=== PATIENT | female | born 1930 | race Caucasian/White ===

== ENCOUNTER 2017-02-22 12:09 | Inpatient (IN) | payer MEDICARE ==
[~2017-02-22] VITALS: Ht 152.4 cm; Wt 42.2 kg
[~2017-02-22 12:09] MED LIST: ASPI-557 PO; BRIN10DR BOTH EYES; CEPH-583 PO; POTA10TA14 PO
--- OUTSIDE RECORDS SUMMARY | 2017-02-22 12:15 | XMS REPORT | Referral Summary ---
Author Author [facility] Organization [facility] Address Unknown Phone Unavailable Care Team Providers Care Planning Director Name Role Phone Rut Henderson Primary Care Physician [phone] Encounter VC Date(s): 10/31/16 - 11/02/16 [facility] [address] [place] [address] Discharge Disposition: 06-Home with Home Health Care Attending Physician: Gabriela Santos MD Admitting Physician: Keerthi Higuera MD Vital Signs Most recent to 1 oldest [Reference Range]: Temperature Oral 36.5 degC [35.8-37.3 degC] (11/02/16 12:00 PM) Peripheral Pulse 80 bpm Rate [60-100 bpm] (11/02/16 12:00 PM) Heart Rate Monitored 96 bpm [60-100 bpm] (10/31/16 9:20 PM) Respiratory Rate 18 br/min [14-20 br/min] (11/02/16 12:00 PM) Blood Pressure 135/72 mmHg [90-140/60-90 mmHg] (11/02/16 12:00 PM) Mean Arterial 93 mmHg Pressure, Cuff (11/02/16 12:00 PM) Pulse Rate [60-100 83 bpm bpm] (11/01/16 12:16 AM) SpO2 95 % (11/02/16 12:00 PM) Remote Telemetry Ongoing (11/02/16 8:00 AM) Problem List Condition Effective Dates Status Health Status Informant At risk for Active injury(Confirmed)1 At risk of pressure Active sore(Confirmed) Stroke(Confirmed) Active Glaucoma(Confirmed) Active patient Ear Active patient infection(Confirmed) Knowledge Active deficit(Confirmed)2 Lung Active patient cancer(Confirmed) Pressure ulcer stage Active 2(Confirmed) Self -care Active deficit(Confirmed)3 Sinus Active patient infection(Confirmed) Tobacco Active patient user(Confirmed) Chicken Active patient pox(Confirmed) 1Problem added automatically by system based on initiation of Risk for Injury Plan of Care 2Problem added automatically by system based on initiation of Knowledge Deficit Plan of Care 3Problem added automatically by system based on initiation of Self Care Deficit Plan of Care Allergies, Adverse Reactions, Alerts Substance Reaction Severity Status penicillin Adverse Reaction Active bad taste in mouth Medications aspirin 81 mg, Oral, Daily, 0 Refill(s) Start Date: 01/02/15 Status: Ordered Azopt 1 drops, Eye-Both, BID, 0 Refill(s) Start Date: 01/02/15 Status: Ordered Critic-Aid Skin 20% topical paste 1 evelin, Topical, BID, X 30 days, # 71 g, 0 Refill(s), [id number] Start Date: 11/02/16 Stop Date: 12/02/16 Status: Ordered Keflex 500 mg oral capsule 500 mg 1 caps, Oral, q8hr, X 5 days, # 14 caps, 0 Refill(s), [facility], 1 caps Oral q8hr,x5 days Start Date: 11/02/16 Stop Date: 11/07/16 Status: Ordered potassium chloride 10 mEq oral capsule, extended release 10 mEq 1 caps, Oral, Daily, # 20 caps, 0 Refill(s), Pharmacy: [facility], 1 caps Oral Daily Start Date: 10/18/16 Status: Ordered Tylenol Extra Strength 500 mg, Oral, q6hr, as needed for fever, 0 Refill(s) Start Date: 10/17/16 Status: Ordered Results Hematology Most recent to 1 oldest [Reference Range]: WBC [4.8-10.8 8.9 10*3/uL 10*3/uL] (11/02/16 5:56 AM) RBC [4.00-5.20] 3.66 *LOW* (11/02/16 5:56 AM) Hgb [12.0-16.0 9.8 gm/dL gm/dL] *LOW* (11/02/16 5:56 AM) Hct [37.0-47.0 %] 30.7 % *LOW* (11/02/16 5:56 AM) MCV [82.0-99.0 fL] 83.9 fL (11/02/16 5:56 AM) MCH [27.0-32.0 pg] 26.8 pg *LOW* (11/02/16 5:56 AM) MCHC [32.0-36.0 31.9 gm/dL gm/dL] *LOW* (11/02/16 5:56 AM) RDW [11.5-14.5 %] 13.7 % (11/02/16 5:56 AM) Platelet [150-400 408 10*3/uL 10*3/uL] *HI* (11/02/16 5:56 AM) MPV [9.4-12.4 fL] 8.8 fL *LOW* (11/02/16 5:56 AM) Immature 0.3 % Granulocytes (11/02/16 5:56 AM) [0.0-1.0 %] Neutrophils [51-75 62 % %] (11/02/16 5:56 AM) Lymphocytes [20-46 24 % %] (11/02/16 5:56 AM) Monocytes [4-11 %] 13 % *HI* (11/02/16 5:56 AM) Eosinophils [0-4 %] 1 % (11/02/16 5:56 AM) Basophils [0-2 %] 1 % (11/02/16 5:56 AM) Neutro Absolute 5.45 [1.90-7.00] (11/02/16 5:56 AM) Lymph Absolute 2.12 [0.80-3.30] (11/02/16 5:56 AM) [place] Absolute 1.11 [0.30-1.00] *HI* (11/02/16 5:56 AM) Eos Absolute 0.10 [0.00-0.50] (11/02/16 5:56 AM) Baso Absolute 0.06 [0.00-0.20] (11/02/16 5:56 AM) Nucleated RBC 0.0 /100 WBC Automated [0 /100 (11/02/16 5:56 AM) WBC] Sed Rate [0-23] 75 *HI* (11/02/16 5:56 AM) Chemistry Most recent to 1 oldest [Reference Range]: Sodium Lvl [136-144 133 mEq/L mEq/L] *LOW* (11/02/16 5:56 AM) Potassium Lvl 4.0 mEq/L [3.6-5.1 mEq/L] (11/02/16 5:56 AM) Chloride [99-109 102 mEq/L mEq/L] (11/02/16 5:56 AM) CO2 [22-32 mEq/L] 23 mEq/L (11/02/16 5:56 AM) AGAP [3-20] 8 (11/02/16 5:56 AM) BUN [4-20 mg/dL] 5 mg/dL (11/02/16 5:56 AM) Glucose Lvl [70-100 107 mg/dL mg/dL] *HI* (11/02/16 5:56 AM) Creatinine Lvl 0.54 mg/dL [0.44-1.03 mg/dL] (11/02/16 5:56 AM) eGFR [>60] >60 1 (11/02/16 5:56 AM) Calcium Lvl 8.5 mg/dL [8.6-10.0 mg/dL] *LOW* (11/02/16 5:56 AM) Albumin Lvl [3.5-4.8 2.4 gm/dL gm/dL] *LOW* (10/31/16 6:25 PM) Total Protein 6.5 gm/dL [6.1-7.9 gm/dL] (10/31/16 6:25 PM) Globulin [1.9-4.3 4.1 gm/dL gm/dL] (10/31/16 6:25 PM) ALT [14-54 U/L] 7 U/L *LOW* (10/31/16 6:25 PM) AST [15-41 U/L] 16 U/L (10/31/16 6:25 PM) Alk Phos [26-104 58 U/L U/L] (10/31/16 6:25 PM) Bili Total [0.2-1.2 0.3 mg/dL 2 mg/dL] (10/31/16 6:25 PM) Magnesium Lvl 1.8 mg/dL [1.8-2.5 mg/dL] (11/02/16 5:56 AM) Lactic Acid Lvl 1.1 mEq/L [0.5-2.2 mEq/L] (10/31/16 9:00 PM) Osmolality [275-300 271 mOsm/kg mOsm/kg] *LOW* (10/31/16 6:25 PM) TSH with Reflex Free 1.03 T4 [0.35-5.50] (10/31/16 6:25 PM) Procalcitonin 0.10 ng/mL 3 [0.00-0.09 ng/mL] *HI* (11/02/16 5:56 AM) 1Result Comment: Multiply eGFR results by 1.21 for race. 2Result Comment: Naproxen, specifically the metabolite O-desmethylnaproxen, may cause spurious elevation in Total Bilirubin levels. 3Result Comment: Normal: <0.1 ng/mL (infants >72 hrs - adults) Suspected Lower Respiratory Tract Infection 0.10-0.25 ng/mL=Low likelihood for bacterial infection; Antibiotics discouraged. >0.25 ng/mL=Increased likelihood for bacterial infection; Antibiotics encouraged. Suspected Sepsis: Strongly consider initiating antibiotics in all unstable patients. 0.10-0.50 ng/mL=Low likelihood for sepsis; Antibiotics discouraged. >0.50 ng/mL=Increased likelihood for sepsis; Antibiotics encouraged. Decisions on antibiotic use should not be based solely on procalcitonin levels. If antibiotics are administered, repeat procalcitonin testing should be obtained every 2-3 days to consider early antibiotic cessation. PCT is a dynamic biomarker and most useful when trends are analyzed over time in accompaniment with other clinical data. Interpretation should be based upon clinical context and algorithms. Toxicology Most recent to 1 oldest [Reference Range]: Ethanol Lvl Not Detected (10/31/16 6:25 PM) Microbiology Reports TEST: Blood Culture STATUS: Order in Progress BODY SITE: SOURCE: Blood COLLECTED DATE/TIME: 10/31/16 8:12 PM Blood Culture No growth after 12 hours incubation. Nursing unit will be called if growth is detected. - TEST: Blood Culture STATUS: Order in Progress BODY SITE: SOURCE: Blood COLLECTED DATE/TIME: 10/31/16 8:00 PM Blood Culture No growth after 12 hours incubation. Nursing unit will be called if growth is detected. - Immunizations Not Given Vaccine Date Status Refusal Reason influenza virus vaccine, inactivated 11/01/16 Not Given Patient Refuses pneumococcal 23-polyvalent vaccine 11/02/16 Not Given Patient Refuses Procedures Procedure Date Related Diagnosis Body Site Cataracts Sinus1 Throat2 1Biopsy 2nodule Social History Social History Type Response Smoking Status Current every day smoker; Type: Cigarettes; Tobacco use per day: Pack; Number of years: 70 Assessment and Plan No data available for this section
--- OUTSIDE RECORDS SUMMARY | 2017-02-22 12:15 | XMS REPORT | Continuity of Care Document ---
Author Author [facility] Organization [facility] Address Unknown Phone Unavailable Support Name Relationship Address Phone SHANI MATA DO Caregiver [address] [place] [address] Unavailable BASILIO HENDERSON MD Caregiver [address] [place] [address] Unavailable WIN FERRERA Next Of Kin TRAVELING NURSE Unknown [phone] Insurance Providers Guarantor Tomy Moore Address [address] [facility] [address] [place] [address] Payer Medicare Policy Number [id number] Subscriber's Name Tomy Moore Relationship 18 Self Effective Date 97 Chief Complaint and Reason for Visit Chief Complaint Lower Extremity Pain Reason for Visit Edema of right lower extremity Cellulitis Problems Past Problems Medical Problem Onset Date Cellulitis Unknown Edema of right lower extremity Unknown Medications Current Home Medications Medication Dose Units Route Directions Days Qty Instructions Start Date Aspirin (Aspir 81) 81 Mg Tablet.dr 81 Mg Oral Daily 10/28/16 Brinzolamide (Azopt) 100 Drop/10 Ml Drops 1 Drop Both Eyes Twice A Day 10/28/16 Cephalexin (Keflex) 500 Mg Capsule 1 Cap Oral Three Times A Day 21 Capsule 10/28/16 Potassium Chloride 10 Meq Tablet.er 10 Meq Oral Give With Breakfast 10/28/16 Social History Social History Problem Response Recorded Date/Time Onset Date Status Hx Alcohol Use No 10/28/2016 4:43pm Not Applicable Not Applicable Query Response Start Date Stop Date Smoking Status Current every day smoker Hospital Discharge Instructions No hospital discharge instructions. Plan of Care Discharge Date 10/28/16 6:10pm Disposition 01 DISCHARGED HOME, SELF-CARE Condition at Discharge Stable Instructions/Education Provided DI for Cellulitis -- Adult Prescriptions See Medication Section Referrals BASILIO HENDERSON MD Address: [address] [place] [address] [phone] Additional Instructions/Education Take the Keflex as prescribed. I do want you to keep you lower leg elevated to help decrease swelling. Follow up with Dr. Henderson next week or return to ER over the weekend if this is not improving, increased swelling, redness, or pain. Care Plan and Goals Physician Care Plan Problem:Right LE edema Goal: Follow up with primary care provider Instructions: Take medications and follow care plan as discussed/written Functional Status No functional status results. Allergies, Adverse Reactions, Alerts No known allergies. Immunizations Query Response on File Recorded Date/Time Tdap Vaccine Hx NO BROKEN SKIN 10/28/16 5:00pm Vital Signs Acute Vital Signs Vital Response Date/Time Temperature (Fahrenheit) 98.5 deg F (96.8 - 99.1) 10/28/2016 6:10pm Temperature (Calculated Celsius) 36.87393 degrees C (36.0 - 37.3) 10/28/2016 6:10pm Pulse Rate (adult) 75 bpm (60 - 100) 10/28/2016 6:10pm Respiratory Rate 14 breaths/min (10 - 20) 10/28/2016 6:10pm O2 Sat by Pulse Oximetry 98 % (90 - 100) 10/28/2016 6:10pm Blood Pressure 130/62 mm Hg 10/28/2016 6:10pm Blood Pressure 130/62 mm Hg 10/28/2016 6:10pm Height (Feet) 5 feet 10/28/2016 4:05pm Height (Inches) 0 inches 10/28/2016 4:05pm Weight (Kilograms) 44.000 kg 10/28/2016 4:05pm Body Mass Index (BMI) 18.0 10/28/2016 4:05pm Results Laboratory Results Test Name Result Units Flags Reference Collection Date/Time Result Date/ Time Comments White Blood Count 9.9 T/MM3 4.5-11.0 10/28/2016 4:57pm 10/28/2016 5: 04pm Red Blood Count 3.97 M/MM3 L 4.00-5.20 10/28/2016 4:57pm 10/28/2016 5: 04pm Hemoglobin 10.8 GM/DL L 12-10/28/2016 4:57pm 10/28/2016 5:04pm Hematocrit 34.0 % L 36-46 10/28/2016 4:57pm 10/28/2016 5:04pm Mean Corpuscular Volume 85.6 UM3 80-100 10/28/2016 4:57pm 10/28/2016 5: 04pm Mean Corpuscular Hemoglobin 27.2 UUG 26-34 10/28/2016 4:57pm 2015 5:04pm Mean Corpuscular Hemoglobin Concent 31.8 GM/DL 31-37 10/28/2016 4:57pm 10/28/2016 5:04pm RDW Standard Deviation 42.0 FL 36.9-50.2 10/28/2016 4:57pm 10/28/2016 5 :04pm Platelet Count 437 T/MM3 H 130-400 10/28/2016 4:57pm 10/28/2016 5:04pm Mean Platelet Volume 8.4 UM3 L 9.4-12.4 10/28/2016 4:57pm 10/28/2016 5: 04pm Neutrophils (%) (Auto) 66.2 % H 33-66 10/28/2016 4:57pm 10/28/2016 5: 04pm Lymphocytes (%) (Auto) 20.8 % L 23-45 10/28/2016 4:57pm 10/28/2016 5: 04pm Monocytes (%) (Auto) 11.6 % H 0-9.0 10/28/2016 4:57pm 10/28/2016 5:04pm Eosinophils (%) (Auto) 0.7 % 0-4 10/28/2016 4:57pm 10/28/2016 5:04pm Basophils (%) (Auto) 0.4 % 0-2 10/28/2016 4:57pm 10/28/2016 5:04pm Immature Granulocyte % (Auto) 0.3 % 0.0-0.5 10/28/2016 4:57pm 2015 5:04pm Absolute Neutrophils (auto) 6.6 T/MM3 1.8-7.7 10/28/2016 4:57pm 2015 5:04pm Absolute Lymphocytes (auto) 2.1 T/MM3 1-4.8 10/28/2016 4:57pm 2015 5:04pm Absolute Monocytes (auto) 1.2 T/MM3 H 0-0.8 10/28/2016 4:57pm 2015 5:04pm Absolute Eosinophils (auto) 0.1 T/MM3 0-0.5 10/28/2016 4:57pm 2015 5:04pm Absolute Basophils (auto) 0.0 T/MM3 0-0.2 10/28/2016 4:57pm 10/28/2016 5:04pm Absolute Immature Granulocyte (auto 0.03 T/MM3 0.00-0.03 10/28/2016 4: 57pm 10/28/2016 5:04pm Icterus Index < 2 0-7 10/28/2016 4:57pm 10/28/2016 5:14pm Chemistry Specimen Hemolysis < 15 0-25 10/28/2016 4:57pm 10/28/2016 5 :14pm 0-25: Specimen Exhibited No Hemolysis. Turbidity < 20 0-20 10/28/2016 4:57pm 10/28/2016 5:14pm Sodium Level 135 MEQ/L 134-144 10/28/2016 4:57pm 10/28/2016 5:14pm Potassium Level 3.3 MEQ/L L 3.6-5 10/28/2016 4:57pm 10/28/2016 5:14pm Chloride Level 97 MEQ/L L 98-107 10/28/2016 4:57pm 10/28/2016 5:14pm Carbon Dioxide Level 29 MEQ/L 22-30 10/28/2016 4:57pm 10/28/2016 5: 14pm Anion Gap 9 MEQ/L 5-15 10/28/2016 4:57pm 10/28/2016 5:14pm Blood Urea Nitrogen 10.0 MG/DL 7-17 10/28/2016 4:57pm 10/28/2016 5: 14pm Creatinine 0.6 MG/DL L 0.7-1.2 10/28/2016 4:57pm 10/28/2016 5:14pm BUN/Creatinine Ratio 17 RATIO 6-26 10/28/2016 4:57pm 10/28/2016 5:14pm Glomerular Filtration Rate Calc 95 10/28/2016 4:57pm 10/28/2016 5: 14pm Glucose Level 110 MG/DL 65-110 10/28/2016 4:57pm 10/28/2016 5:14pm Calculated Osmolality 260 MOSM/KG L 261-280 10/28/2016 4:57pm 2015 5:14pm Calcium Level 9.1 MG/DL 8.4-10.2 10/28/2016 4:57pm 10/28/2016 5:14pm Name: Tomy MOORE Unit #: [id number] : 1930 Sex: F Admit Date: Loc / Svc: ED Discharge Date: DIAGNOSTIC IMAGING REPORT Report #: [id number] [facility] JET Reddy Indication: ITS.REASON: RLE edema PROCEDURE: US VENOUS DUPLEX, LOWER EXT RT: Encounter: Initial Comparison: None Technique: Color Doppler duplex and grayscale sonographic imaging of the right lower extremity was performed. Findings: There is no evidence for acute deep venous thrombosis in the right thigh. Specifically, serial graded compression was performed from the inguinal ligament to the popliteal bifurcation, on the right thigh, demonstrating appropriate compressibility of the deep venous system. In addition, color and pulsed Doppler demonstrate appropriate spontaneous flow, variation with respiration, and augmentation with calf compression. At the ankle, normal flow is identified in the posterior tibial veins; these vessels are also normal in caliber. Impression: No evidence of acute DVT in the right lower limb. . Procedures No known history of procedures. Encounters Encounter Location Arrival/Admit Date Discharge/Depart Date Attending Provider Departed Emergency Room [facility] 10/28/16 4:01pm 10/28/16 6: 10pm SHANI MATA DO Recent Diagnosis
--- OUTSIDE RECORDS SUMMARY | 2017-02-22 12:15 | XMS REPORT | Referral Summary ---
Author Author [facility] Organization [facility] Address Unknown Phone Unavailable Care Team Providers Care Nail Galvanizer Name Role Phone Rut Henderson Primary Care Physician [phone] Encounter VC Date(s): 10/28/16 - 10/28/16 [facility] [address] [place] [address] Discharge Diagnosis: Right leg swelling Discharge Disposition: 01-Home or Self Care Attending Physician: Kam Lovett PA-C Admitting Physician: Kam Lovett PA-C Vital Signs No data available for this section Problem List Condition Effective Dates Status Health Status Informant Stroke(Confirmed) Active Glaucoma(Confirmed) Active patient Ear Active patient infection(Confirmed) Lung Active patient cancer(Confirmed) Sinus Active patient infection(Confirmed) Tobacco Active patient user(Confirmed) Chicken Active patient pox(Confirmed) Allergies, Adverse Reactions, Alerts Substance Reaction Severity Status penicillin Adverse Reaction Active bad taste in mouth Medications aspirin 0 Refill(s) Start Date: 01/02/15 Status: Ordered Azopt drops, Eye-Both, TID, 0 Refill(s) Start Date: 01/02/15 Status: Ordered potassium chloride 10 mEq oral capsule, extended release 10 mEq 1 caps, Oral, Daily, # 20 caps, 0 Refill(s), Pharmacy: [id number], 1 caps Oral Daily Start Date: 10/18/16 Status: Ordered Tylenol Extra Strength Oral, 0 Refill(s) Start Date: 10/17/16 Status: Ordered Results No data available for this section Immunizations No data available for this section Procedures Procedure Date Related Diagnosis Body Site Cataracts Sinus1 Throat2 1Biopsy 2nodule Social History Social History Type Response Smoking Status Current every day smoker; Type: Cigarettes; Tobacco use per day: Pack; Number of years: 70 Assessment and Plan Extracted from: Title: Right lower extremity Author: Kam Lovett PA-C Date: 10/28/16 swelling
--- OUTSIDE RECORDS SUMMARY | 2017-02-22 12:15 | XMS REPORT | Referral Summary ---
Author Author [facility] Organization [facility] Address Unknown Phone Unavailable Care Team Providers Care Therapist Physical Name Role Phone Rut Henderson Primary Care Physician [phone] Encounter VC Date(s): 10/17/16 - 10/17/16 [facility] [address] [place] [address] Discharge Diagnosis: Frail Elderly Discharge Diagnosis: Lung cancer Discharge Diagnosis: Fatigue Discharge Diagnosis: Tobacco user Discharge Diagnosis: Weight loss Discharge Disposition: 01-Home or Self Care Attending Physician: Gwyn Henderson MD Admitting Physician: Gwyn Henderson MD Vital Signs Most recent to 1 oldest [Reference Range]: Temperature Tympanic 37.8 degC [36.6-38.1 degC] (10/17/16 1:55 PM) Peripheral Pulse 91 bpm Rate [60-100 bpm] (10/17/16 1:55 PM) Blood Pressure 142/68 mmHg [90-140/60-90 mmHg] *HI* (10/17/16 1:55 PM) SpO2 92 % (10/17/16 1:55 PM) Problem List Condition Effective Dates Status Health [...] 0 Refill(s) Start Date: 01/02/15 Status: Ordered Tylenol Extra Strength Oral, 0 Refill(s) Start Date: 10/17/16 Status: Ordered Results Hematology Most recent to 1 oldest [Reference Range]: WBC [4.8-10.8 11.9 10*3/uL 10*3/uL] *HI* (10/17/16 3:02 PM) RBC [4.00-5.20] 4.18 (10/17/16 3:02 PM) Hgb [12.0-16.0 11.7 gm/dL gm/dL] *LOW* (10/17/16 3:02 PM) Hct [37.0-47.0 %] 36.1 % *LOW* (10/17/16 3:02 PM) MCV [82.0-99.0 fL] 86.4 fL (10/17/16 3:02 PM) MCH [27.0-32.0 pg] 28.0 pg (10/17/16 3:02 PM) MCHC [32.0-36.0 32.4 gm/dL gm/dL] (10/17/16 3:02 PM) RDW [11.5-14.5 %] 13.6 % (10/17/16 3:02 PM) Platelet [150-400 454 10*3/uL 10*3/uL] *HI* (10/17/16 3:02 PM) MPV [8.8-14.8 fL] 9.4 fL (10/17/16 3:02 PM) Neutrophils [51-75 78 % %] *HI* (10/17/16 3:02 PM) Lymphocytes [20-46 13 % %] *LOW* (10/17/16 3:02 PM) Monocytes [4-11 %] 8 % (10/17/16 3:02 PM) Eosinophils [0-4 %] 1 % (10/17/16 3:02 PM) Basophils [0-2 %] 0 % (10/17/16 3:02 PM) Neutro Absolute 9.28 10*3 [1.90-7.00 10*3] *HI* (10/17/16 3:02 PM) Lymph Absolute 1.55 10*3 [0.80-3.30 10*3] (10/17/16 3:02 PM) [place] Absolute 0.95 10*3 [0.30-1.00 10*3] (10/17/16 3:02 PM) Eos Absolute 0.12 10*3 [0.00-0.50 10*3] (10/17/16 3:02 PM) Baso Absolute 0.00 10*3 [0.00-0.20 10*3] (10/17/16 3:02 PM) Differential Manual *ABN* (10/17/16 3:02 PM) Sed Rate [0-23] 82 *HI* (10/17/16 3:02 PM) Chemistry Most recent to 1 oldest [Reference Range]: Sodium Lvl [135-144 136 mEq/L mEq/L] (10/17/16 3:02 PM) Potassium Lvl 3.1 mEq/L [3.5-5.2 mEq/L] *LOW* (10/17/16 3:02 PM) Chloride [99-111 99 mEq/L mEq/L] (10/17/16 3:02 PM) CO2 [22-31 mEq/L] 23 mEq/L (10/17/16 3:02 PM) AGAP [3-20] 14 (10/17/16 3:02 PM) BUN [10-20 mg/dL] 11 mg/dL (10/17/16 3:02 PM) Glucose Lvl [70-99 119 mg/dL mg/dL] *HI* (10/17/16 3:02 PM) Creatinine Lvl 0.68 mg/dL [0.57-1.11 mg/dL] (10/17/16 3:02 PM) eGFR [>60 mL/min] >60 mL/min 1 (10/17/16 3:02 PM) Calcium Lvl 9.3 mg/dL [8.9-10.5 mg/dL] (10/17/16 3:02 PM) Albumin Lvl [3.4-4.8 3.7 gm/dL gm/dL] (10/17/16 3:02 PM) Total Protein 7.1 gm/dL [6.0-7.6 gm/dL] (10/17/16 3:02 PM) Globulin [1.8-4.0 3.4 gm/dL gm/dL] (10/17/16 3:02 PM) ALT [0-55 U/L] 5 U/L (10/17/16 3:02 PM) AST [5-34 U/L] 10 U/L (10/17/16 3:02 PM) Alk Phos [40-150 75 U/L U/L] (10/17/16 3:02 PM) Bili Total [0.2-1.2 0.5 mg/dL mg/dL] (10/17/16 3:02 PM) TSH with Reflex Free 0.57 T4 [0.35-4.94] (10/17/16 3:02 PM) 1Result Comment: Multiply eGFR results by 1.21 for race. Immunizations No data available for this section Procedures Procedure Date Related Diagnosis Body Site Cataracts Sinus1 Throat2 1Biopsy 2nodule Social History Social History Type Response Smoking Status Current every day smoker; Type: Cigarettes; Tobacco use per day: Pack; Number of years: 70 Assessment and Plan Extracted from: Title: Acute OV Author: Gwyn Henderson MD Date: 10/17/16 Impression and Plan Diagnosis Fatigue (NLG82-ZC R53.83, Discharge, Medical). Frail Elderly (EVQ99-UR R54, Discharge, Medical). Lung cancer (QWU06-QE C34.90, Discharge, Medical). Tobacco user (RCQ50-SZ Z72.0, Discharge, Medical). Weight loss (UVN39-AT R63.4, Discharge, Medical). Orders Orders (Selected) Outpatient Orders Future (On Hold) CBC w/ Differential: CMP: Sedimentation Rate: TSH with Reflex Free T4: .
--- OUTSIDE RECORDS SUMMARY | 2017-02-22 12:15 | XMS REPORT | Continuity of Care Document ---
Author Author [facility] Organization [facility] Address Unknown Phone Unavailable Allergies Active Description Code Type Severity Reaction Onset Reported/Identified Relationship to Patient Clinical Status Yes No Known Drug Allergies No Known Drug Allergies Drug Allergy Unknown . 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 Procedures Code Description Performed By Performed On 39.71 ENDOVASCULAR IMPLANTATION OF OTHER GRAFT IN ABDOMI Bennie Beltran MD 02/09/2015 Results Test Result Range CBC - 02/04/15 10:18 MEAN CELL HGB 29.9 pg 27.0-33.0 MEAN CELL HGB CONCENTRATION 34.5 g/dL 32.0-37.0 MEAN CELL VOLUME 86.5 fl 80.0-100.0 RED BLOOD CELL 4.75 m/cumm 4.00-6.00 RED CELL DISTRIBUTION WIDTH 14.5 % 11.0- 15.6 WHITE BLOOD CELL 6.8 k/cumm 5.0-10.0 HEMOGLOBIN 14.2 gm/dL 12.0-16.0 HEMATOCRIT 41.1 % 37.0-47.0 PLATELET COUNT 305 k/cumm 150-400 METABOLIC PANEL, BASIC - 02/04/15 10:18 POTASSIUM 3.9 mmol/L 3.5-5.3 EST GFR (MDRD) > 60 mL/min > 59 ANION GAP 9 mmol/L 5-15 GLUCOSE 96 mg/dL 70-99 CALCIUM 9.8 mg/dL 8.5-10.1 BLOOD UREA NITROGEN 9 mg/dL 7-20 CREATININE 0.7 mg/dL 0.6-1.0 SODIUM 137 mmol/L 135-148 CHLORIDE 102 mmol/L 98-110 CARBON DIOXIDE 26 mmol/L 21-32 RENAL FUNCTION PANEL - 02/10/15 04:29 POTASSIUM 4.0 mmol/L 3.5-5.3 EST GFR (MDRD) > 60 mL/min > 59 ANION GAP 4 mmol/L 5-15 EST CrCl (CG) 57 mL/min > 59 GLUCOSE 129 mg/dL 70-99 CALCIUM 8.5 mg/dL 8.5-10.1 BLOOD UREA NITROGEN 6 mg/dL 7-20 CREATININE 0.6 mg/dL 0.6-1.0 SODIUM 135 mmol/L 135-148 CHLORIDE 103 mmol/L 98-110 CARBON DIOXIDE 28 mmol/L 21-32 ALBUMIN 3.1 gm/dL 3.4-5.0 PHOSPHORUS 3.0 mg/dL 2.5-4.9 MRSA SURVEILLANCE SCREEN - 02/10/15 05:00 Microbiology Encounters ACCT No. Visit Date/Time Discharge Status Pt. Type Provider Facility Loc./Unit Complaint [id number] 02/09/2015 08:49:00 2014 14:50:00 DIS Inpatient Devin JOVEL, [facility] W.3TS [id number] 02/04/2015 09:07:00 2014 09:07:00 DIS Outpatient Devin JOVEL, [facility] FRANNIE
--- OUTSIDE RECORDS SUMMARY | 2017-02-22 12:15 | XMS REPORT | Referral Summary ---
Author Author [facility], Family Medicine Organization [facility] Address Unknown Phone Unavailable Care Team Providers Care Ip Litigation Associate Name Role Phone Rut Henderson Primary Care Physician [phone] Encounter VC Date(s): 11/24/16 - 11/24/16 [facility] [address] [place] [id number] Discharge Diagnosis: Self -care deficit Discharge Diagnosis: Frail Elderly Discharge Diagnosis: Weight loss Discharge Diagnosis: Lung cancer Discharge Disposition: 01-Home or Self Care Attending Physician: Gwyn Henderson MD Admitting Physician: Gwyn Henderson MD Vital Signs Most recent to 1 oldest [Reference Range]: Peripheral Pulse 71 bpm Rate [60-100 bpm] (11/24/16 10:27 AM) Blood Pressure 160/60 mmHg [90-140/60-90 mmHg] *HI* (11/24/16 10:27 AM) Problem List Condition Effective Dates Status [...] mg, Oral, Daily, 0 Refill(s) Start Date: 2/27/15 Status: Ordered Azopt 1 drops, Eye-Both, BID, 0 Refill(s) Start Date: 01/02/15 Status: Ordered Critic-Aid Skin 20% topical paste 1 evelin, Topical, BID, X 30 days, # 71 g, 0 Refill(s), Pharmacy: [id number] Start Date: 11/02/16 Stop Date: 12/02/16 Status: Ordered potassium chloride 10 mEq oral capsule, extended release 10 mEq 1 caps, Oral, Daily, # 20 caps, 0 Refill(s), Pharmacy: [id number], 1 caps Oral Daily Start Date: 10/18/16 Status: Ordered Results No data available for this section Immunizations Given and Recorded Vaccine Date Status Refusal Reason influenza virus vaccine, inactivated 11/08/16 Given pneumococcal 23-polyvalent vaccine 11/08/16 Given Not Given Vaccine Date Status Refusal Reason [...] 68 Assessment and Plan Extracted from: Title: OV Author: Gwyn Henderson MD Date: 11/24/16 Impression and Plan Diagnosis Frail Elderly ([id number], Discharge, Medical). Self -care deficit ([id number] Z73.89, Discharge, Medical). Weight loss ([id number] R63.4, Discharge, Medical). Lung cancer ([id number] C34.90, Discharge, Medical).
--- OUTSIDE RECORDS SUMMARY | 2017-02-22 12:15 | XMS REPORT | Referral Summary ---
Author Author [facility], Family Medicine Organization [facility] Address Unknown Phone Unavailable Care Team Providers Care Etiologist Name Role Phone Rut Henderson Primary Care Physician [phone] Encounter VC NAN [id number] Date(s): 11/08/16 - 11/08/16 [facility] [address] [place] [id number] Discharge Disposition: 01-Home or Self Care Attending Physician: Joe Boss APRN Admitting Physician: Joe Boss APRN Vital Signs Most recent to 1 oldest [Reference Range]: Peripheral Pulse 68 bpm Rate [60-100 bpm] (11/08/16 10:56 AM) Blood Pressure 124/60 mmHg [90-140/60-90 mmHg] (11/08/16 11:00 AM) Problem List Condition Effective Dates Status [...] days, # 71 g, 0 Refill(s), Pharmacy: [id number] Start Date: 11/02/16 Stop Date: 12/02/16 Status: Ordered potassium chloride 10 mEq oral capsule, extended release 10 mEq 1 caps, Oral, Daily, # 20 caps, 0 Refill(s), Pharmacy: [id number], 1 caps Oral Daily Start Date: 10/18/16 Status: Ordered Results Chemistry Most recent to 1 oldest [Reference Range]: Sodium Lvl [135-144 139 mEq/L mEq/L] (11/08/16 12:48 PM) Potassium Lvl 5.0 mEq/L [3.5-5.2 mEq/L] (11/08/16 12:48 PM) Chloride [99-111 102 mEq/L mEq/L] (11/08/16 12:48 PM) CO2 [22-31 mEq/L] 25 mEq/L (11/08/16 12:48 PM) AGAP [3-20] 12 (11/08/16 12:48 PM) BUN [10-20 mg/dL] 8 mg/dL *LOW* (11/08/16 12:48 PM) Glucose Lvl [70-99 108 mg/dL mg/dL] *HI* (11/08/16 12:48 PM) Creatinine Lvl 0.68 mg/dL [0.57-1.11 mg/dL] (11/08/16 12:48 PM) eGFR [>60 mL/min] >60 mL/min 1 (11/08/16 12:48 PM) Calcium Lvl 9.9 mg/dL [8.9-10.5 mg/dL] (11/08/16 12:48 PM) 1Result Comment: Multiply eGFR results by 1.21 for race. Immunizations Given and Recorded Vaccine Date Status [...]
[2017-02-22 12:41] VITALS: Ht 152.4 cm; Wt 42.2 kg
[2017-02-22 12:43] VITALS: BP 146/72; PULSE 72; RESP 22; TEMP 95.9; O2SAT 100
--- NOTE | 2017-02-22 13:08 | HPPDOC ---
LUIS CARLOS COBB V IMMUNOCHEMIST 02/22/17 1304: HPI - Adult Date DATE: 02/22/17 TIME: 12:55 General Chief Complaint: Dyspnea, Hypoxia History of Present Illness Patient is an 86-year-old female who presented to her primary care provider this morning at [facility] and was seen by Lorena Hunt. She was brought by daughter with complaints of diarrhea, weight loss,confusion, and increased coughing. Family reports that there has been a "bug" around the house for the past week. On arrival to the clinic. Patient was found to have hypoxia with room air saturations in the 81%. She is reported to be down from 91 pounds last month 286 pounds today. Given the acute hypoxia, accompanied with increased cough and recent diarrhea. The hospitalist services were contacted and accepted patient for direct admission to [facility] for further evaluation and treatment. It is reported that patient has been under treatment for lung cancer with Dr. Mills. She did have an outpatient CT scan of the chest obtained this morning showing interval extensive tree-in-bed nodularity with bilateral lower lobes which may represent pneumonia. Patient is seen on arrival to [facility]. She is currently requiring 2 liters of oxygen by nasal cannula to maintain adequate saturation. The pressure on arrival 95.5, pulse 72, respiration rate 22, blood pressure 146/72. Patient is alert into 2. She is unsure what year it is currently. She reports feeling more short of breath and having increased cough over the last few days. She is unclear on the timeframe of when her diarrhea starts, however, she thinks it was last week. She denies chest pain, chills, abdominal pain or dysuria. Past Medical History Past Medical History Lung Cancer CAD Abdominal aneurysm Surgical History Patient's Surgical History: Cataract removal Abdominal aneurysm repair Current Medications Home Meds Reported Medications Brinzolamide (Azopt) 100 Drop/10 Ml Drops, 1 DROP BOTH EYES BID 10/28/16 Aspirin (Aspir 81) 81 Mg Tablet.dr, 81 MG PO DAILY 10/28/16 Discontinued Reported Medications Potassium Chloride (Potassium Chloride) 10 Meq Tablet.er, 10 MEQ PO WB 10/28/16 Discontinued Scripts Cephalexin (Keflex) 500 Mg Capsule, 1 CAP PO TID, #21 CAP 0 Refills Prov:ALEXRODASESNohemi Argueta IMMUNOCHEMIST 10/28/16 Allergies: Coded Allergies: No Known Allergies (Unverified , 10/28/16) Family History Family History: Father-Brain aneurysm. Mother-stomach cancer Social History Smoking Status: Current every day smoker Substance Use Type: does not use Alcohol Intake: none Advance Directives: Yes DNR Social History Comments PCP Dr Henderson Review of Systems Constitutional: REPORTS: appetite decrease, fatigue, weakness Cardiovascular dyspnea on exertion Pulmonary Respiratory: cough, dyspnea, tachypnea GI Lower Abdomen: diarrhea All Other Systems All Other Systems: Reviewed (remainder of 10-point ROS Neg.) Physical Exam General General Nourishment: well nourished, well developed Vital Signs Vital Signs Date Time Temp Pulse Resp B/P Pulse Ox O2 Delivery O2 Flow Rate FiO2 02/22/17 12:43 95.9 72 22 146/72 100 Nasal Cannula 2.00 Height (Feet): 5 Height (Inches): 0.00 Respiratory Brief: NOT FOUND: wheezes Comments Course breath sounds bilaterally Abdomen (brief) Abdominal Brief: FOUND: BS normo active x4, soft Neurologic (brief) Neurological Brief: FOUND: cranial 2-12 intact, motor (strength bilateral eqally x4 extre), sensory (equal bilaterally) Neurologic RN Documented GCS Eye Opening: Verbal: Motor: Total: Psychiatric (brief) FOUND: alert, attentive, normal affect Assessment & Plan Problems: (1) Acute respiratory failure with hypoxia Status: Acute (2) Leukocytosis Status: Acute Assessment & Plan: Present on admission (3) Coughing Status: Acute (4) Hypokalemia Status: Acute Assessment & Plan: Present on admission (5) Lung cancer Status: Chronic Qualifiers: Lung location: unspecified part of lung (6) Coronary artery disease Status: Chronic (7) Tobacco dependence Status: Chronic (8) Underweight Status: Chronic (9) History of aortic aneurysm repair Status: Resolved Plan/Intensity of Service Admit patient to inpatient status under the care of Dr. Atkinson for acute respiratory failure with hypoxia, cough, presence of lung cancer. Will obtain the following laboratory studies on admission, CBC, CMP, venous lactate, pro calcitonin, blood cultures 2 Will obtain GI panel given recent diarrhea Chest x-ray two-view and sputum culture as able Oxygen therapy to maintain adequate saturations greater than 92%. DuoNeb QID and Pulmicort BID Given leukocytosis will initiate Rocephin and Azithromycin for pulmonary coverage She may have regular diet and be up in room with assistance SCDs to bilateral lower extremity for DVT prophylaxis We'll recheck CBC and BMP tomorrow morning to follow blood counts, renal function and electrolytes. We'll discuss further plan of care with attending Dr Atkinson At time of discharge medical care will return to her primary care provider Dr Henderson DVT Prophylaxis: SCD'S Code Status Hospital Course Summary Disclaimer The hospital course summary below is not to be considered part of the above Progress Note. Hospital Course Summary Admit patient to inpatient status under the care of Dr. Atkinson for acute respiratory failure with hypoxia, cough, presence of lung cancer. Will obtain the following laboratory studies on admission, CBC, CMP, venous lactate, pro calcitonin, blood cultures 2 Will obtain GI panel given recent diarrhea Chest x-ray two-view and sputum culture as able Oxygen therapy to maintain adequate saturations greater than 92%. DuoNeb QID and Pulmicort BID Given leukocytosis will initiate Rocephin and Azithromycin for pulmonary coverage She may have regular diet and be up in room with assistance SCDs to bilateral lower extremity for DVT prophylaxis We'll recheck CBC and BMP tomorrow morning to follow blood counts, renal function and electrolytes. We'll discuss further plan of care with attending Dr Atkinson At time of discharge medical care will return to her primary care provider SHAW Artis MD 02/22/17 4297: Past Medical History Current Medications Home Meds Reported Medications Brinzolamide (Azopt) 100 Drop/10 Ml Drops, 1 DROP BOTH EYES BID 10/28/16 Aspirin (Aspir 81) 81 Mg Tablet.dr, 81 MG PO DAILY 10/28/16 Discontinued Reported Medications Potassium Chloride (Potassium Chloride) 10 Meq Tablet.er, 10 MEQ PO WB 10/28/16 Discontinued Scripts Cephalexin (Keflex) 500 Mg Capsule, 1 CAP PO TID, #21 CAP 0 Refills Prov:UMA KATENohemi Argueta APRN 10/28/16 Allergies: Coded Allergies: No Known Allergies (Unverified , 10/28/16) Sepsis Diagnostic Criteria Sepsis Confirmed/Suspected Infection: Yes SIRS Criteria: Temp<=96.8 or >=100.4, WBC >=12,000 or <=4,000, Bands >= 10%, BS >120 in non-diabetic, RR > or = to 20 Severe Sepsis SpO2 <90% or ventilated Assessment & Plan Problems: (1) Acute respiratory failure with hypoxia Status: Acute (2) Severe sepsis Status: Acute (3) Pneumonia Status: Acute Qualifiers: Laterality: left Lung location: lower lobe of lung Assessment & Plan: Bilateral lower lobe infiltrates on CT; left lower lobe on chest x-ray (4) Hypokalemia Status: Acute (5) Leukocytosis Status: Acute (6) Lung cancer Status: Chronic Qualifiers: Lung location: unspecified part of lung (7) Coughing Status: Acute (8) Coronary artery disease Status: Chronic (9) Tobacco dependence Status: Chronic (10) Underweight Status: Chronic Assessment & Plan: Recent weight loss (11) History of aortic aneurysm repair Status: Resolved (12) Dysphagia Status: Chronic Assessment I have independently evaluated and examined this patient. I reviewed the chart, the patient's history, and the IMMUNOCHEMIST's documented findings as above. We discussed and formulated the assessment and plan as above with additions as below: Patient was somnolent when seen although would open her eyes briefly, minimal verbal response. History obtained from her daughter who indicates patient has been losing weight progressively and has had been choking on foods at home. She primarily consumes nutritional supplements. Progressive weakness for several weeks with increasing cough but no reported fevers prompted office evaluation today where she was found to be hypoxic. She initially required 3 L supplemental oxygen. She was hemodynamically stable in the office but had leukocytosis with left shift. The patient's daughter reports that her mental status tends to fluctuate and there has been increasing confusion for several months. She's not had CT of the head previously. On examination the patient is cachectic and drowsy, she falls asleep when not actively stimulated and provides minimal information when I can awaken her. Patient tends to keep her eyes closed although conjunctiva are clear and sclera anicteric when open briefly. Gaze is conjugate. Neck is supple and without adenopathy. There is a suggestion of minor flattening of the left nasolabial fold although this may be due to patient positioning. Anterior breath sounds are clear with breath sounds very diminished in the lower third of the lung alvarez posteriorly/laterally bilaterally. Inspiratory effort is poor. Cardiac rhythm regular and abdomen benign. I could not wake and patient adequately to formally assess power but she does move the extremities weakly/spontaneously as I palpate them. No generalized skin rash noted Chest x-ray reviewed by myself demonstrating left lower lobe pneumonia. Leukocytosis/left shift present New hypoxia, hyperglycemia present on admission. Blood gas without hypercarbia. Antibiotics initiated for outpatient pneumonia-last hospitalization in November. Speech therapy evaluation initiated. Prednisone 40 mg daily added to her regimen 5 days Nicotine patch initiated per patient/daughter request Screening respiratory viral panel in addition to testing previously ordered. Plan/Intensity of Service Outpatient records reviewed, chest x-ray reviewed by myself, laboratory data reviewed, supplemental history provided by the patient's daughter. Discussed with office provider earlier today. Discussed with nursing. LUIS CARLOS COBB APRN Feb 22, 2017 13:04 SHAW ATKINSON MD Feb 22, 2017 17:57
[2017-02-22 13:13] LABS: LACTATE - LACTIC ACID 1.6 MMOL/L (0.6-2.2)
[2017-02-22 13:32] LABS: HCT - HEMATOCRIT 38.3 % (36-46); HGB - HEMOGLOBIN 12.4 GM/DL (12-16); MEAN CORPUSCULAR HGB 27.2 UUG (26-34); MEAN CORPUSCULAR HGB CONC(MCHC 32.4 GM/DL (31-37); MEAN PLATELET VOLUME 9.8 UM3 (9.4-12.4); RED BLOOD COUNT 4.56 M/MM3 (4.00-5.20); WBC - WHITE BLOOD COUNT 17.8 T/MM3 (4.5-11.0)
[2017-02-22 13:41] LABS: ANION GAP 13 MEQ/L (5-15); BUN/CREATININE RATIO 31 RATIO (6-26); CALCIUM 9.7 MG/DL (8.4-10.2); CHLORIDE 99 MEQ/L (98-107); CO2 - CARBON DIOXIDE 29 MEQ/L (22-30); CREATININE 0.8 MG/DL (0.7-1.2); GLOMERULAR FILTRATION RATE 68; GLUCOSE 139 MG/DL (65-110); POTASSIUM 3.2 MEQ/L (3.6-5); SODIUM 141 MEQ/L (134-144)
[2017-02-22] MEDS: NORMAL SALINE 1,000 ML IV SCH (13:59)
[2017-02-22 14:00] VITALS: PULSE 72; RESP 22
[2017-02-22 14:07] LABS: BAND NEUTROPHILS # 3.7 T/MM3; BASOPHILS # (MANUAL) 0.2 T/MM3 (0-0.2); LYMPHOCYTES # (MANUAL) 1.1 T/MM3 (1-4.8); MONOCYTES # (MANUAL) 1.1 T/MM3 (0-0.8); NEUTROPHILS #(MANUAL)-ABSOLUTE 11.7 T/MM3 (1.8-7.7); TOTAL CELLS COUNTED 100 %
--- NOTE | 2017-02-22 14:19 | NUR ---
ADMISSION PT ADMITTED TO ROOM 142 AT 1230 VIA WHEELCHAIR FROM [facility]. DIRECT ADMIT. PT IS A&OX3, UP WITH ONE ASSIST AND WALKER. PT DENIES PAIN, N/V AND SOA. PT IS ON 2L O2 NC. GRANDDAUGHTER IS AT BEDSIDE. PT ORIENTED TO HOSPITAL ROOM AND BED. IV SITE PLACED TO RIGHT WRIST, 1 ATTEMPT 20GA. FLUIDS AND ANTIBIOTICS STARTED. NO OTHER CHANGES, UNABLE TO PUT BED ALARM ON DUE TO PT'S LOW WEIGHT AND HIGH FOWLERS POSITION.
--- NOTE | 2017-02-22 14:25 | DI ---
INDICATION: ITS.REASON: dyspnea PROCEDURE: CHEST 2-VIEWS UPRIGHT (PA \T\ LAT) Encounter: Initial COMPARISON: None FINDINGS: Significant airspace consolidation in the left lower lobe with a small left effusion. Right lung is grossly clear. Moderate emphysema and hyperinflation. No pneumothorax. Heart size and mediastinal contours are within normal limits. Aortic stent graft noted. Impression: Significant left lower lobe pneumonia or aspiration. .
[2017-02-22] MEDS: CEFTRIAXONE 1 G in NORMAL SALINE 100 ML IV SCH (14:42)
[2017-02-22] MEDS: AZITHROMYCIN 500 MG in NORMAL SALINE 250 ML IV SCH (15:29)
--- NOTE | 2017-02-22 16:01 | NUR ---
SPEECH THERAPY SCREEN FOR SWALLOWING Patient was screened due to risk of aspiration. Oral [facility] exam indicated facial symmetry and no labial or lingual impairments. Patient presents with upper dentures. Patient was given trials of pudding, thin water, and emily cracker. Reduced laryngeal elevation was observed. Patient exhibited fair lingual manipulation with all trials and consistencies. No clinical s/s of aspiration were observed during this screen. Speech therapy will check back with patient tomorrow (02/23).
[2017-02-22] MEDS: ALBUTEROL/IPRATROPIUM INHAL. 2.5mg-0.5mg/3ml Neb. AEROSOL SCH ×2 (16:35→20:01)
[2017-02-22] MEDS: PredniSONE 20 MG TABLET PO SCH (17:38)
[2017-02-22] MEDS ORDERED: ARTIFICIAL TEARS 15 ML BOTTLE BOTH EYES PRN (18:15)
[2017-02-22 18:48] LABS: BLOOD, URINE TRACE-INTACT (NEGATIVE); COLOR,URINE YELLOW (YELLOW); LEUKOCYTE ESTERASE ,URINE NEGATIVE (NEGATIVE); NITRITE,URINE NEGATIVE (NEGATIVE); UROBILINOGEN,URINE 0.2 EU/DL (NORMAL)
[2017-02-22 18:56] LABS: SQUAMOUS EPITHELIAL CELL,UR 20-50
[2017-02-22 18:57] LABS: BACTERIA,URINE 1+ (NEGATIVE); MUCUS,URINE PRESENT; RBC,URINE 0-1 /HPF (0-3)
[2017-02-22] MEDS ORDERED: NICOTINE 14 MG PATCH TD ONE (19:15)
[2017-02-22 20:01] VITALS: O2SAT 93
[2017-02-22] MEDS: BUDESONIDE INH.SOLN. 0.5mg/2ml NEB AEROSOL SCH (20:01)
[2017-02-22] MEDS: EYE BOTH EYES SCH (21:17)
[2017-02-22] MEDS: BRINZOLAMIDE 1% BOTH EYES SCH (21:17)
[2017-02-22 22:21] VITALS: PULSE 68; RESP 18
[2017-02-22] MEDS: POTASSIUM CHLORIDE 10 MEQ, LIDOCAINE 1% 10 MG in NORMAL SALINE 100 ML IV SCH (23:33)
[2017-02-23] VITALS (11 sets, daily range): BP systolic 128–177; BP diastolic 65–85; PULSE 70–86; RESP 16–22; TEMP 96.1–96.2; O2SAT 87–96
[2017-02-23] MEDS: POTASSIUM CHLORIDE 10 MEQ, LIDOCAINE 1% 10 MG in NORMAL SALINE 100 ML IV SCH ×3 (01:10→04:16)
--- NOTE | 2017-02-23 01:32 | NUR ---
Status After repositioning pt, she became unresponsive. The episode lasted less than a minute and she suddenly yelled "I cant breathe!" informed and new orders rec'd. Pt is A/O at this time, VS stable, remains on 2LNC. Monitoring.
[2017-02-23] MEDS: NORMAL SALINE 1,000 ML IV SCH ×3 (04:24→17:47)
[2017-02-23 05:40] LABS: HCT - HEMATOCRIT 34.1 % (36-46); HGB - HEMOGLOBIN 10.9 GM/DL (12-16); MEAN CORPUSCULAR VOLUME 84.6 UM3 (80-100); MEAN PLATELET VOLUME 9.6 UM3 (9.4-12.4); RED BLOOD COUNT 4.03 M/MM3 (4.00-5.20); WBC - WHITE BLOOD COUNT 10.1 T/MM3 (4.5-11.0)
[2017-02-23 05:51] LABS: ALBUMIN/GLOBULIN RATIO 0.9 RATIO (1.1-2.2); ALKALINE PHOSPHATASE 78 U/L (38-126); ALT (SGPT) 15 U/L (9-52); ANION GAP 11 MEQ/L (5-15); AST (SGOT) 20 U/L (14-36); BUN/CREATININE RATIO 26 RATIO (6-26); CALCIUM 9.1 MG/DL (8.4-10.2); CHLORIDE 106 MEQ/L (98-107); CO2 - CARBON DIOXIDE 27 MEQ/L (22-30); CREATININE 0.7 MG/DL (0.7-1.2); GLOMERULAR FILTRATION RATE 80; GLUCOSE 153 MG/DL (65-110); PHOSPHORUS 2.8 MG/DL (2.5-4.5); POTASSIUM 4.4 MEQ/L (3.6-5); SODIUM 144 MEQ/L (134-144); TOTAL PROTEIN 6.3 G/DL (6.3-8.2)
[2017-02-23 06:10] LABS: BAND NEUTROPHILS # 0.5 T/MM3; LYMPHOCYTES # (MANUAL) 0.4 T/MM3 (1-4.8); MONOCYTES # (MANUAL) 0.1 T/MM3 (0-0.8); NEUTROPHILS #(MANUAL)-ABSOLUTE 9.1 T/MM3 (1.8-7.7); TOTAL CELLS COUNTED 100 %
[2017-02-23] MEDS: ALBUTEROL/IPRATROPIUM INHAL. 2.5mg-0.5mg/3ml Neb. AEROSOL SCH ×4 (07:46→19:42)
[2017-02-23] MEDS: BUDESONIDE INH.SOLN. 0.5mg/2ml NEB AEROSOL SCH ×2 (07:46→19:42)
[2017-02-23] MEDS: NICOTINE PATCH REMOVAL TD SCH (09:24)
[2017-02-23] MEDS: NICOTINE 14 MG PATCH TD SCH (09:24)
[2017-02-23] MEDS: ASPIRIN *EC* 81mg TABLET PO SCH (09:25)
[2017-02-23] MEDS: PredniSONE 20 MG TABLET PO SCH (09:25)
[2017-02-23] MEDS: CEFTRIAXONE 1 G in NORMAL SALINE 100 ML IV SCH (09:27)
[2017-02-23] MEDS: EYE BOTH EYES SCH ×2 (09:30→21:20)
[2017-02-23] MEDS: BRINZOLAMIDE 1% BOTH EYES SCH ×2 (09:30→21:20)
[2017-02-23] MEDS: AZITHROMYCIN 500 MG in NORMAL SALINE 250 ML IV SCH (10:18)
--- NOTE | 2017-02-23 10:37 | NUR ---
Status Patient up to chair with assist. Patient was on 3l/nc, weaned to RA. Sats currently 92%, denies SOA. Current smoker. Poor intake, states she doesn't really eat much would rather drink coffee.
--- NOTE | 2017-02-23 11:19 | PNPDOC ---
LUIS CARLOS COBB V COMMUNITY DEVELOPMENT WORKER 02/23/17 1119: Subjective Date DATE: 02/23/17 TIME: 11:14 Subjective Patient is seen today sitting up in the chair. She is currently weaned down to room air, however, required 3 liters of oxygen overnight. She appears to be more alert today and is oriented. States that she is feeling better and denies having any chest pain or GI complaints. Continues to have some nonproductive coughing. Decreased appetite, however, is drinking coffee. Blood pressure 151/73 Objective Vital Signs Vital signs Vital Signs Date Time Temp Pulse Resp B/P Pulse Ox O2 Delivery O2 Flow Rate FiO2 02/23/17 10:18 Room Air 02/23/17 09:46 92 1.00 02/23/17 07:55 76 02/23/17 07:49 96.1 18 151/73 Height (Feet): 5 Height (Inches): 0.00 Weight (Kilograms): 42.000 General General Appearance: Alert, Orientated x 2, Cooperative, No Acute Distress Eyes (Brief) Eyes: FOUND: EOMI ENMT (Brief) ENMT: FOUND: mucosa moist, normal dentition, NOT FOUND: pharnyx erythema Neck (Brief) Neck: FOUND: midline, NOT FOUND: adenopathy, carotid bruits, tracheal deviation Respiratory (Brief) Respiratory: NOT FOUND: wheezes Comments Diminished Cardiovascular (Brief) Cardiac: FOUND: regular rate, regular rhythm, NOT FOUND: murmur, pedal edema Capillary Refill: <2 sec Abdomen (Brief) Abdominal: FOUND: BS normo active x4, soft, NOT FOUND: distended, tender Lymphatic (Brief) Lymphatic: NOT FOUND: adenopathy Musculoskeletal (Brief) Musculoskeletal: NOT FOUND: tenderness Integumentary (Brief) Integumentary: FOUND: dry, pink, warm Neurologic (Brief) Neurological: FOUND: cranial 2-12 intact Psychiatric (Brief) Psychiatric: FOUND: alert, attentive, normal affect, oriented Laboratory Laboratory Laboratory Tests 02/22/17 13:01 02/23/17 05:01 Laboratory Tests 02/22/17 13:01 02/23/17 05:01 Microbiology Microbiology Microbiology Date/Time Source Procedure Growth Status 02/22/17 13:05 Cath/Port/Line/Picc Blood Culture - Preliminary CULTURE INITIATED - RESULTS PENDING Resulted 02/22/17 13:01 Cath/Port/Line/Picc Blood Culture - Preliminary CULTURE INITIATED - RESULTS PENDING Resulted Sepsis Diagnostic Criteria Sepsis Confirmed/Suspected Infection: Yes SIRS Criteria: Temp<=96.8 or >=100.4, WBC >=12,000 or <=4,000, Bands >= 10%, BS >120 in non-diabetic, RR > or = to 20 Severe Sepsis SpO2 <90% or ventilated Assessment & Plan Problems: (1) Acute respiratory failure with hypoxia Status: Acute (2) Severe sepsis Status: Acute (3) Pneumonia Status: Acute Qualifiers: Laterality: left Lung location: lower lobe of lung Assessment & Plan: Bilateral lower lobe infiltrates on CT; left lower lobe on chest x-ray (4) Hypokalemia Status: Acute (5) Leukocytosis Status: Acute (6) Lung cancer Status: Chronic Qualifiers: Lung location: unspecified part of lung (7) Coughing Status: Acute (8) Coronary artery disease Status: Chronic (9) Tobacco dependence Status: Chronic (10) Underweight Status: Chronic Assessment & Plan: Recent weight loss (11) History of aortic aneurysm repair Status: Resolved (12) Dysphagia Status: Chronic Plan/Intensity of Service 02/23/17 Working on weaning down to room air today. Respiratory panel was positive for enterovirus/Rhinovirus Prednisone 40 grams daily for pulmonary inflammation Continue with antimicrobial coverage including Rocephin and azithromycin. Scheduled DuoNeb and Pulmicort breathing treatments. Leukocytosis, improved. White count down to 10.1, bandemia decreased to 5%. Code Status Do Not Resuscitate Hospital Course Summary Disclaimer The hospital course summary below is not to be considered part of the above Progress Note. Hospital Course Summary Admit patient to inpatient status under the care of Dr. Atkinson for acute respiratory failure with hypoxia, cough, presence of lung cancer. Will obtain the following laboratory studies on admission, CBC, CMP, venous lactate, pro calcitonin, blood cultures 2 Will obtain GI panel given recent diarrhea Chest x-ray two-view and sputum culture as able Oxygen therapy to maintain adequate saturations greater than 92%. DuoNeb QID and Pulmicort BID Given leukocytosis will initiate Rocephin and Azithromycin for pulmonary coverage She may have regular diet and be up in room with assistance SCDs to bilateral lower extremity for DVT prophylaxis We'll recheck CBC and BMP tomorrow morning to follow blood counts, renal function and electrolytes. We'll discuss further plan of care with attending Dr Atkinson At time of discharge medical care will return to her primary care provider Dr Henderson 02/23/17 Working on weaning down to room air today. Respiratory panel was positive for enterovirus/Rhinovirus Prednisone 40 grams daily for pulmonary inflammation Continue with antimicrobial coverage including Rocephin and azithromycin. Scheduled DuoNeb and Pulmicort breathing treatments. Leukocytosis, improved. White count down to 10.1, bandemia decreased to 5%. SHAW ATKINSON MD 02/23/17 1717: Assessment & Plan Assessment I have independently evaluated and examined this patient. I reviewed the chart, the patient's history, and the COMMUNITY DEVELOPMENT WORKER's documented findings as above. We discussed and formulated the assessment and plan as above with additions as below: Mrs. Law is much more alert today and had multiple questions. She is weaned off oxygen to room air and ambulated with room air earlier per her report. She reports her breathing is better and that she has mild exertional dyspnea. Intermittent cough persists without sputum production. She expressed concern about an episode yesterday early this morning where she was aware of people talking in her room but being unable to verbally respond, she is unsure if she could move her arms or legs at the time. Speech is fluent and patient is alert and fully oriented. Research [facility] Director are symmetric, no drift, proximal/distal power lower extremities good. EOMI, facial structure symmetric. Respirations nonlabored with good airflow although breath sounds are somewhat diminished throughout. Noncontrast CT head reviewed by myself-no acute pathology, chronic atrophy reported by radiology. Brief episode of what sounds like sleep paralysis, CT head obtained to exclude focal pathology and none evident. Rhinovirus positive on respiratory panel. Suspect presentation viral in origin but will continue azithromycin at discharge to complete course. Given marked improvement anticipate discharge tomorrow barring changes overnight. PT/OT consults Plan/Intensity of Service CT head reviewed by myself, laboratory data reviewed. Lengthy discussion regarding DO NOT RESUSCITATE versus living will with patient who confirmed DO NOT RESUSCITATE in the event. LUIS CARLOS COBB APRN Feb 23, 2017 11:19 SHAW ATKINSON MD Feb 23, 2017 17:17
--- NOTE | 2017-02-23 12:00 | NUR ---
Ambulation Patient ambulated on RA. Sats after ambulation 89% and recovered quickly to >90%. Patient did appear slightly SOA towards end of walk.
--- NOTE | 2017-02-23 15:35 | NUR ---
CM CM IN TO VISIT PT AND GRAND DAUGHTER. CM EXPLAINED ROLE AND PROVIDED CONTACT INFORMATION. FAMILY REQUESTED MEDICAID APPLICATION, IT WAS PROVIDED. PT AND GRAND DAUGHTER AWARE TO CALL CM SHOULD NEEDS ARISE.
--- NOTE | 2017-02-23 15:57 | DI ---
Indication: ITS.REASON: confusion, possible sleep paralysis PROCEDURE: CT HEAD W/O CONTRAST: Encounter: Initial Comparison: None Technique: Axial CT images through the head were performed without contrast. Iterative Reconstruction dose reducing technique was utilized. FINDINGS: Mild generalized atrophy. The ventricles are of normal size, shape, and contour for the patient's age. There are numerous areas of low attenuation in the white matter which most likely represent changes from chronic microvascular ischemia. The brainstem, cerebellum, and cerebral hemispheres otherwise have a normal morphology and CT attenuation. There is no evidence of midline displacement. No hemorrhage, signs of acute territorial stroke, mass effect, mass lesions, or edema is evident. The visualized portions of the skull base, midface, and calvarium demonstrate no abnormality. The paranasal sinuses are well aerated and free of significant disease. The tympanic and mastoid cavities appear normal. IMPRESSION: No acute intracranial abnormality or hemorrhage. .
--- NOTE | 2017-02-23 16:36 | NUR ---
Oxygen Patient on RA, sats 87%. Patient placed on 1 l/nc and 02 sats increased to 93%. Patient denied any SOA or troubles breathing with oxygen 87%.
--- NOTE | 2017-02-23 17:03 | NUR ---
Nutrition Risk R/T adult BMI <18.6 Diet Order: Regular Intake: Dinner 02/22 50% Breakfast 02/23 10 % RD attempted to see pt 2x without success. Pt was busy with other disciplines. RD will send Mighty Shake with each meal. FANS notified to send Mighty Shake with each meal. RD available at ext [phone]
--- NOTE | 2017-02-23 20:59 | NUR ---
Pt called and stated that "it is difficult to breathe". Pt was on 1 lpm O2 NC, SaO2 87%. I increased her O2 to 3 lpm O2 NC, SaO2 95%. Pt calmed down and states that she feels like she can breathe a little better now
[2017-02-24] VITALS (11 sets, daily range): BP systolic 121–158; BP diastolic 68–95; PULSE 91–108; RESP 18–20; TEMP 97.4–98.7; O2SAT 87–98
[2017-02-24] MEDS: NORMAL SALINE 1,000 ML IV SCH (04:09)
[2017-02-24 05:16] LABS: BASOPHILS % (AUTO) 0.1 % (0-2); HCT - HEMATOCRIT 31.9 % (36-46); HGB - HEMOGLOBIN 10.2 GM/DL (12-16); IMMATURE GRANULOCYTE # (AUTO) 0.05 T/MM3 (0.00-0.03); IMMATURE GRANULOCYTE % (AUTO) 0.4 % (0.0-0.5); LYMPHOCYTES # (AUTO) 1.1 T/MM3 (1-4.8); LYMPHOCYTES % (AUTO) 9.2 % (23-45); MEAN CORPUSCULAR VOLUME 84.4 UM3 (80-100); MEAN PLATELET VOLUME 9.5 UM3 (9.4-12.4); MONOCYTES # (AUTO) 0.8 T/MM3 (0-0.8); MONOCYTES % (AUTO) 6.9 % (0-9.0); NEUTROPHILS #(AUTO)-ABSOLUTE 9.8 T/MM3 (1.8-7.7); NEUTROPHILS % (AUTO) 83.4 % (33-66); RED BLOOD COUNT 3.78 M/MM3 (4.00-5.20); WBC - WHITE BLOOD COUNT 11.7 T/MM3 (4.5-11.0)
--- NOTE | 2017-02-24 06:35 | NUR ---
SUMMARY PT SLEPT ON AND OFF THIS SHIFT. PT IS ALERT AND ORIENTED WITH FORGETFULNESS. PT DENIED ANY PAIN. SHE WAS ON 3L/NC O2. HAS BEEN UP TWICE TO USE THE COMMODE. ADEQUATE URINE OUTPUT. NO BM THIS SHIFT. FLATUS PRESENT. PT VOICED THAT SHE DOESN'T HAVE A GOOD APPETITE. ENCOURAGED TO DRINK MIGHTY SHAKE. CONTINUE ON IV FLUIDS THAT SHE TOLERATES WELL. PT WAS ENCOURAGED TO KEEP REPOSITIONING TO AVOID PUTTING PRESSURE ON HER SACRAL AREA.
[2017-02-24] MEDS: BUDESONIDE INH.SOLN. 0.5mg/2ml NEB AEROSOL SCH ×2 (07:28→19:06)
[2017-02-24] MEDS: ALBUTEROL/IPRATROPIUM INHAL. 2.5mg-0.5mg/3ml Neb. AEROSOL SCH ×4 (07:30→19:05)
[2017-02-24] MEDS: ASPIRIN *EC* 81mg TABLET PO SCH (08:31)
[2017-02-24] MEDS: PredniSONE 20 MG TABLET PO SCH (08:32)
[2017-02-24] MEDS: CEFTRIAXONE 1 G in NORMAL SALINE 100 ML IV SCH (08:33)
[2017-02-24] MEDS: NICOTINE PATCH REMOVAL TD SCH (08:33)
[2017-02-24] MEDS: NICOTINE 14 MG PATCH TD SCH (08:33)
[2017-02-24] MEDS: EYE BOTH EYES SCH ×2 (08:34→19:26)
[2017-02-24] MEDS: BRINZOLAMIDE 1% BOTH EYES SCH ×2 (08:34→19:26)
[2017-02-24] MEDS: AZITHROMYCIN 250 MG TABLET PO SCH (09:37)
--- NOTE | 2017-02-24 09:46 | NUR ---
JOHANNY ORLANDO VISITED PT. CM EXPLAINED ROLE AND PROVIDED CONTACT INFORMATION. PT PLANS TO RETURN HOME AND LIVE WITH GRANDDAUGHTER POST STAY AT [facility] [place]. PT IS AWARE TO CONTACT CM IF NEEDS ARISE.
--- NOTE | 2017-02-24 13:33 | NUR ---
Nutrition risk f/u RD visited with pt after she had finished her breakfast. She ate ~ 30% of meal and Mighty Shake, but nearly finished 20 oz of coffee with sugar substitute. She mentioned several times in the conversation that she "needs to stop losing weight." she doesn't have bottom dentures, so she is careful what kind of food she orders. She does not want to be on a soft diet. Pt was able to order lunch, and chose soft foods. She prefers Chocolate Mighty shakes, as snacks, not with meals. She likes coffee, and agreed to have coffee after her meals, not with her meals, to help increase energy/nutrient intake.
--- NOTE | 2017-02-24 13:36 | NUR ---
JOHANNY ROLANDO SPOKE WITH PT DAUGHTER WIN AND SHE IS AWARE THAT PT WILL NOT D/C HOME TODAY. PT MAY NEED OXYGEN AT TIME OF D/C FROM [facility] [place] AND THEY WILL USE [facility]. [phone] [facility] HAS AN OXYGEN TANK IN RESPIRATORY HERE AT THE HOSPITAL. PT WILL USE [facility]. JUAN MANUEL IS AWARE THAT PT COULD D/C OVER THE WEEKEND. MADELINE AWARE TO CONTACT CM IF NEEDS ARISE. PT GRANDDAUGHTER STANFORD WILL TRANSPORT PT HOME AT TIME OF D/C FROM [facility] [place].
--- NOTE | 2017-02-24 14:24 | DI ---
INDICATION: ITS.REASON: hypoxia, pneumonia PROCEDURE: CHEST 2-VIEWS UPRIGHT (PA \T\ LAT) Encounter: Initial COMPARISON: February 22, 2017 FINDINGS: Increasing small bilateral pleural effusions with continued lower lobe airspace consolidation which now involves the right as well as the left lower lobes. Emphysema. No pneumothorax. Heart size and mediastinal contours are stable. Pulmonary vascularity is unchanged. Impression: Increasing pleural effusions with development of right lower lobe airspace disease could represent peribronchial spread of infection. .
--- NOTE | 2017-02-24 18:22 | NUR ---
STATUS PT HAS HAD POOR ORAL INTAKE TODAY. PT HAS REFUSED LUNCH AND DINNER. GIVEN MIGHTY SHAKE AND ENCOURAGING FLUIDS. ON 1L PER NC. IV LOCKED AT THIS TIME. UP WITH ONE PERSON ASSIST AND GAIT BELT/ WALKER. MAINTAINED DROPLET PRECAUTIONS. SCDS ON BILAT LOWER EXTREMITIES. PT HAD BOWEL MOVEMENT X2 TODAY. ALERT AND ORIENTED X3 DURING MY SHIFT. BED ALARM ON AND CALL LIGHT IN REACH.
[2017-02-24] MEDS ORDERED: FUROSEMIDE 20 MG/2 ML INJECTION IV ONE (18:45)
--- NOTE | 2017-02-24 19:04 | PNPDOC ---
Subjective Date DATE: 02/24/17 TIME: 18:45 Subjective Mrs. Law reports that she didn't sleep well last night and became more dyspneic overnight with some cough but no sputum production. She denied fevers has had no chest pain or nausea. She was short of breath with activities. Her appetite is poor but she denied difficulty swallowing. She reports that she's had a bowel movement and denied abdominal pain. No further episodes of being unable to respond verbally when she could hear people in the room as she experienced the first night. Objective Vital Signs Vital signs Vital Signs Date Time Temp Pulse Resp B/P Pulse Ox O2 Delivery O2 Flow Rate FiO2 02/24/17 15:28 97.4 108 20 121/68 94 Nasal Cannula 1.00 I/O 3797/1000 EXAM General-NAD, alert, cooperative, fluent speech HEENT-minor right ptosis, conjunctiva clear Lungs-crackles at the bases, left greater than right Cardiac-regular rhythm, S1-S2 Abd-soft, nontender, diminished bowel sounds Ext-without edema Neuro-moving all extremities well Psych-calm, cooperative, frustrated Height (Feet): 5 Height (Inches): 0.00 Weight (Kilograms): 44.600 Laboratory Laboratory Laboratory Tests 02/23/17 05:01 Laboratory Tests 02/23/17 05:01 02/24/17 04:35 Liver enzymes unremarkable Microbiology Microbiology Microbiology Date/Time Source Procedure Growth Status 02/22/17 13:05 Cath/Port/Line/Picc Blood Culture - Preliminary NO GROWTH AFTER 48 HOURS Resulted 02/22/17 13:01 Cath/Port/Line/Picc Blood Culture - Preliminary NO GROWTH AFTER 48 HOURS Resulted Stool panel negative Respiratory viral panel positive for rhinovirus/enterovirus Radiology Chest x-ray reviewed by myself-small pleural effusions, mild increased vascularity with bilateral lower lobe infiltrates present currently Sepsis Diagnostic Criteria Sepsis Confirmed/Suspected Infection: Yes SIRS Criteria: Temp<=96.8 or >=100.4, WBC >=12,000 or <=4,000, Bands >= 10%, BS >120 in non-diabetic, RR > or = to 20 Severe Sepsis SpO2 <90% or ventilated Assessment & Plan Problems: (1) Acute respiratory failure with hypoxia Status: Acute (2) Severe sepsis Status: Acute (3) Pneumonia Status: Acute Qualifiers: Laterality: left Lung location: lower lobe of lung Assessment & Plan: Bilateral lower lobe infiltrates on CT; left lower lobe on chest x-ray (4) Hypokalemia Status: Acute (5) Leukocytosis Status: Acute (6) Lung cancer Status: Chronic Qualifiers: Lung location: unspecified part of lung (7) Coughing Status: Acute (8) Coronary artery disease Status: Chronic (9) Tobacco dependence Status: Chronic (10) Underweight Status: Chronic Assessment & Plan: Recent weight loss (11) History of aortic aneurysm repair Status: Resolved (12) Dysphagia Status: Chronic Assessment After initially having improvement in oxygenation the patient reports increased dyspnea and has developed recurrent hypoxia. Fluid volume positive over the first 2 days. Repeat chest x-ray with small effusions and bilateral infiltrates compared to isolated left lower infiltrate on admission. Vascular markings not grossly changed but suspect a component of volume overload. Weight up 5 kg from admission. Lasix to be given, IV fluids discontinued. Reassess in a.m. Continue current antibiotics, anticipate discharge in the near future but may require oxygen. Minor leukocytosis but resolution of left shift. Overnight oximetry to be obtained tonight. Plan/Intensity of Service Chest x-ray reviewed by myself, laboratory data reviewed. Discussed with nursing and case management. DVT Prophylaxis: SCD'S Code Status Do Not Resuscitate Hospital Course Summary Disclaimer The hospital course summary below is not to be considered part of the above Progress Note. Hospital Course Summary Admit patient to inpatient status under the care of Dr. Atkinson for acute respiratory failure with hypoxia, cough, presence of lung cancer. Will obtain the following laboratory studies on admission, CBC, CMP, venous lactate, pro calcitonin, blood cultures 2 Will obtain GI panel given recent diarrhea Chest x-ray two-view and sputum culture as able Oxygen therapy to maintain adequate saturations greater than 92%. DuoNeb QID and Pulmicort BID Given leukocytosis will initiate Rocephin and Azithromycin for pulmonary coverage She may have regular diet and be up in room with assistance SCDs to bilateral lower extremity for DVT prophylaxis We'll recheck CBC and BMP tomorrow morning to follow blood counts, renal function and electrolytes. We'll discuss further plan of care with attending Dr Atkinson At time of discharge medical care will return to her primary care provider Dr Henderson 02/23/17 Working on weaning down to room air today. Respiratory panel was positive for enterovirus/Rhinovirus Prednisone 40 grams daily for pulmonary inflammation Continue with antimicrobial coverage including Rocephin and azithromycin. Scheduled DuoNeb and Pulmicort breathing treatments. Leukocytosis, improved. White count down to 10.1, bandemia decreased to 5%. 02/24 After initially having improvement in oxygenation the patient reports increased dyspnea and has developed recurrent hypoxia. Fluid volume positive over the first 2 days. Repeat chest x-ray with small effusions and bilateral infiltrates compared to isolated left lower infiltrate on admission. Vascular markings not grossly changed but suspect a component of volume overload. Weight up 5 kg from admission. Lasix to be given, IV fluids discontinued. Reassess in a.m. Continue current antibiotics, anticipate discharge in the near future but may require oxygen. Mild persistent leukocytosis but no left shift. Overnight oximetry to be obtained tonight. SHAW ATKINSON MD Feb 24, 2017 18:55
--- NOTE | 2017-02-24 22:10 | NUR ---
Placed pt on the Overnight Oximetry Study. Pt on 1 lpm O2 NC. Placed pt on RA for the study. Monitored pt, sao2 levels were 90-93% on RA. RN and telemetry notified. No complications
[2017-02-25] VITALS (8 sets, daily range): BP systolic 119–160; BP diastolic 77–105; PULSE 97–111; RESP 18; TEMP 96.7–97.4; O2SAT 91–98
--- NOTE | 2017-02-25 05:11 | NUR ---
SHORTNESS OF AIR: PATIENT STATED SHE WAS SOA. CALLED TELEMETRY, THEY SAID PT'S 02 SATURATION IS 92%, HEART RATE 95. INCREASED 02 TO 2L AND SAT PT UP. TWENTY MINUTES LATER ASSESSED PT, PT STILL SAID SHE WAS SOA. LISTENED TO HER LUNGS, CLEAR (NOT DIMINISHED) - NO WHEEZING OR CRACKLES. SPOKE TO CHARGE NURSE, RACHEL. CHARGE SAID TO SEE IF SHE COULD RECEIVE SCHEDULED DUONEB EARLY. SENT TIGER TEXT AND REC'D A CALL BACK FROM DR. ARMAS. HE SAID TO GIVE THE DUONEB EARLY. CALLED RESPIRATORY AND SPOKE WITH ROGER TO HAVE THE 9:00 AM SCHEDULED DUONEB TO BE ADMINISTERED NOW. WILL CONTINUE TO MONITOR.
[2017-02-25] MEDS: ALBUTEROL/IPRATROPIUM INHAL. 2.5mg-0.5mg/3ml Neb. AEROSOL SCH ×4 (05:22→21:14)
[2017-02-25 05:28] LABS: BASOPHILS % (AUTO) 0.1 % (0-2); HCT - HEMATOCRIT 32.7 % (36-46); HGB - HEMOGLOBIN 10.7 GM/DL (12-16); IMMATURE GRANULOCYTE # (AUTO) 0.05 T/MM3 (0.00-0.03); IMMATURE GRANULOCYTE % (AUTO) 0.5 % (0.0-0.5); LYMPHOCYTES # (AUTO) 1.5 T/MM3 (1-4.8); MEAN CORPUSCULAR HGB 27.3 UUG (26-34); MEAN CORPUSCULAR HGB CONC(MCHC 32.7 GM/DL (31-37); MEAN CORPUSCULAR VOLUME 83.4 UM3 (80-100); MEAN PLATELET VOLUME 9.8 UM3 (9.4-12.4); MONOCYTES # (AUTO) 1.1 T/MM3 (0-0.8); MONOCYTES % (AUTO) 11.4 % (0-9.0); NEUTROPHILS #(AUTO)-ABSOLUTE 6.7 T/MM3 (1.8-7.7); RED BLOOD COUNT 3.92 M/MM3 (4.00-5.20); WBC - WHITE BLOOD COUNT 9.3 T/MM3 (4.5-11.0)
[2017-02-25 05:37] LABS: ANION GAP 12 MEQ/L (5-15); BUN/CREATININE RATIO 21 RATIO (6-26); CALCIUM 9.1 MG/DL (8.4-10.2); CHLORIDE 103 MEQ/L (98-107); CO2 - CARBON DIOXIDE 26 MEQ/L (22-30); CREATININE 0.7 MG/DL (0.7-1.2); GLOMERULAR FILTRATION RATE 80; GLUCOSE 109 MG/DL (65-110); MAGNESIUM 1.9 MG/DL (1.6-2.3); POTASSIUM 3.1 MEQ/L (3.6-5); SODIUM 141 MEQ/L (134-144)
--- NOTE | 2017-02-25 07:47 | NUR ---
SHIFT SUMMARY: PT IS A&OX3, CAN BE FORGETFUL AND ANXIOUS AT TIMES. ON DROPLET PRECAUTIONS, IS UP WITH GAIT BELT AND WALKER TO BATHROOM, USES SCDS ON LOWER EXTREMITIES; ON TELEMETRY; COMPLAINED OF SOA DURING THE NIGHT (SEE PREVIOUS NURSE NOTE); PT IS BLIND IN HER RIGHT EYE. CALL LIGHT WITHIN REACH, BED ALARM ON.
[2017-02-25] MEDS: AZITHROMYCIN 250 MG TABLET PO SCH (08:38)
[2017-02-25] MEDS: PredniSONE 20 MG TABLET PO SCH (08:38)
[2017-02-25] MEDS: ASPIRIN *EC* 81mg TABLET PO SCH (08:38)
[2017-02-25] MEDS: BRINZOLAMIDE 1% BOTH EYES SCH ×2 (09:19→19:44)
[2017-02-25] MEDS: NICOTINE 14 MG PATCH TD SCH (09:19)
[2017-02-25] MEDS: NICOTINE PATCH REMOVAL TD SCH (09:19)
[2017-02-25] MEDS: EYE BOTH EYES SCH ×2 (09:19→19:44)
[2017-02-25] MEDS: CEFTRIAXONE 1 G in NORMAL SALINE 100 ML IV SCH (09:19)
[2017-02-25] MEDS: POTASSIUM CHLORIDE 20 MEQ TABLET PO SCH ×2 (09:20→18:03)
[2017-02-25] MEDS: FUROSEMIDE 20 MG/2 ML INJECTION IV SCH ×2 (09:20→18:03)
[2017-02-25] MEDS: BUDESONIDE INH.SOLN. 0.5mg/2ml NEB AEROSOL SCH ×2 (11:22→21:14)
--- NOTE | 2017-02-25 12:32 | PNPDOC ---
Subjective Date DATE: 02/25/17 TIME: 12:25 Subjective No new events, tolerated some diuresis overnight but still dyspneic this morning. Weights stable, up about 5 kg during this admission. No fevers, chills, nausea. Appetite finally coming back a little today. Discussed ongoing smoking cessation efforts. Objective Vital Signs Vital signs Vital Signs Date Time Temp Pulse Resp B/P Pulse Ox O2 Delivery O2 Flow Rate FiO2 02/25/17 11:39 96 02/25/17 11:24 20 94 02/25/17 08:11 96.7 136/93 Nasal Cannula 2.00 Height (Feet): 5 Height (Inches): 0.00 Weight (Kilograms): 43.200 General General Appearance: Alert, Orientated x 3, No Acute Distress Comments mildly anxious Eyes (Brief) Eyes: FOUND: EOMI, PERRL, NOT FOUND: scleral icterus Neck (Brief) Neck: FOUND: JVD, NOT FOUND: nuchal rigidity Respiratory (Brief) Respiratory: FOUND: equal bilaterally, rales Comments bilateral LE rales, diminished throughout Cardiovascular (Brief) Cardiac: FOUND: regular rate, regular rhythm, NOT FOUND: pedal edema Abdomen (Brief) Abdominal: FOUND: distended, soft, NOT FOUND: tender Extremities (Brief) Extremity : Extremity Finding: FOUND: warm, NOT FOUND: cyanosis Integumentary (Brief) Integumentary: FOUND: dry, warm, NOT FOUND: rash Psychiatric (Brief) Psychiatric: FOUND: alert, attentive, oriented Laboratory Laboratory Laboratory Tests 02/25/17 04:21 Laboratory Tests 02/24/17 04:35 02/25/17 04:21 Microbiology Microbiology Microbiology Date/Time Source Procedure Growth Status 02/22/17 13:05 Cath/Port/Line/Picc Blood Culture - Preliminary NO GROWTH AFTER 48 HOURS Resulted 02/22/17 13:01 Cath/Port/Line/Picc Blood Culture - Preliminary NO GROWTH AFTER 48 HOURS Resulted Radiology PROCEDURE: CHEST 2-VIEWS UPRIGHT (PA \T\ LAT) from 02/24/17 Encounter: Initial COMPARISON: February 22, 2017 FINDINGS: Increasing small bilateral pleural effusions with continued lower lobe airspace consolidation which now involves the right as well as the left lower lobes. Emphysema. No pneumothorax. Heart size and mediastinal contours are stable. Pulmonary vascularity is unchanged. Impression: Increasing pleural effusions with development of right lower lobe airspace disease could represent peribronchial spread of infection. Sepsis Diagnostic Criteria Sepsis Confirmed/Suspected Infection: Yes SIRS Criteria: Temp<=96.8 or >=100.4, WBC >=12,000 or <=4,000, Bands >= 10%, BS >120 in non-diabetic, RR > or = to 20 Severe Sepsis SpO2 <90% or ventilated Assessment & Plan Problems: (1) Acute respiratory failure with hypoxia Status: Acute (2) Severe sepsis Status: Acute (3) Pneumonia Status: Acute Qualifiers: Laterality: left Lung location: lower lobe of lung Assessment & Plan: Bilateral lower lobe infiltrates on CT; left lower lobe on chest x-ray (4) Hypokalemia Status: Acute (5) Leukocytosis Status: Acute (6) Lung cancer Status: Chronic Qualifiers: Lung location: unspecified part of lung (7) Coughing Status: Acute (8) Coronary artery disease Status: Chronic (9) Tobacco dependence Status: Chronic (10) Underweight Status: Chronic Assessment & Plan: Recent weight loss (11) History of aortic aneurysm repair Status: Resolved (12) Dysphagia Status: Chronic (13) Acute hypokalemia Status: Acute Assessment & Plan: Secondary to diuretics Assessment After initially having improvement in oxygenation she has worsened with ongoing hypoxia related to volume overload; continue diuresis with lasix 20 mg IV BID today. Repleting K with po potassium, will crush if not tolerating pills. Repeat chest x-ray with small effusions and bilateral infiltrates compared to isolated left lower infiltrate on admission. Vascular markings not grossly changed but suspect a component of volume overload. Weight up 5 kg from admission--> weight really unchanged today, rales on lung exam. Continue off IVF. Continue current antibiotics, may transition to po tomorrow if CXR improved, will repeat in AM. Minor leukocytosis but resolution of left shift and improving. Overnight oximetry will be reviewed; likely will need home 02. Labs ordered for AM in addition to CXR. Plan/Intensity of Service Chest x-ray reviewed by myself, laboratory data reviewed. Discussed with nursing and case management. Code Status Do Not Resuscitate Hospital Course Summary Disclaimer The hospital course summary below is not to be considered part of the above Progress Note. Hospital Course Summary Admit patient to inpatient status under the care of Dr. Atkinson for acute respiratory failure with hypoxia, cough, presence of lung cancer. Will obtain the following laboratory studies on admission, CBC, CMP, venous lactate, pro calcitonin, blood cultures 2 Will obtain GI panel given recent diarrhea Chest x-ray two-view and sputum culture as able Oxygen therapy to maintain adequate saturations greater than 92%. DuoNeb QID and Pulmicort BID Given leukocytosis will initiate Rocephin and Azithromycin for pulmonary coverage She may have regular diet and be up in room with assistance SCDs to bilateral lower extremity for DVT prophylaxis We'll recheck CBC and BMP tomorrow morning to follow blood counts, renal function and electrolytes. We'll discuss further plan of care with attending Dr Atkinson At time of discharge medical care will return to her primary care provider Dr Henderson 02/23/17 Working on weaning down to room air today. Respiratory panel was positive for enterovirus/Rhinovirus Prednisone 40 grams daily for pulmonary inflammation Continue with antimicrobial coverage including Rocephin and azithromycin. Scheduled DuoNeb and Pulmicort breathing treatments. Leukocytosis, improved. White count down to 10.1, bandemia decreased to 5%. 02/24 After initially having improvement in oxygenation the patient reports increased dyspnea and has developed recurrent hypoxia. Fluid volume positive over the first 2 days. Repeat chest x-ray with small effusions and bilateral infiltrates compared to isolated left lower infiltrate on admission. Vascular markings not grossly changed but suspect a component of volume overload. Weight up 5 kg from admission. Lasix to be given, IV fluids discontinued. Reassess in a.m. Continue current antibiotics, anticipate discharge in the near future but may require oxygen. Mild persistent leukocytosis but no left shift. Overnight oximetry to be obtained tonight. 02/25/17 After initially having improvement in oxygenation she has worsened with ongoing hypoxia related to volume overload; continue diuresis with lasix 20 mg IV BID today. Repleting K with po potassium, will crush if not tolerating pills. Repeat chest x-ray with small effusions and bilateral infiltrates compared to isolated left lower infiltrate on admission. Vascular markings not grossly changed but suspect a component of volume overload. Weight up 5 kg from admission--> weight really unchanged today, rales on lung exam. Continue off IVF. Continue current antibiotics, may transition to po tomorrow if CXR improved, will repeat in AM. Minor leukocytosis but resolution of left shift and improving. Overnight oximetry will be reviewed; likely will need home 02. Labs ordered for AM in addition to CXR. GEORGE MIR MD Feb 25, 2017 12:31
--- NOTE | 2017-02-25 19:15 | NUR ---
status Pt A/O x3, V/S stable on 1L. Pt ambulates well with 1x assist and walker to bathroom, states some SOA but recovers well after back to bed. Pt ate better today, did not refuse meals. Pt denies need for PRN pain meds. Pt remains on precautions. IV site leaking, new site started in Lt hand and IVL.
[2017-02-26] VITALS (7 sets, daily range): BP systolic 134–160; BP diastolic 84–105; PULSE 92–102; RESP 18; TEMP 93.8–97.4; O2SAT 93–95
[2017-02-26 05:50] LABS: ALBUMIN 2.8 G/DL (3.5-5.0); ANION GAP 10 MEQ/L (5-15); BUN/CREATININE RATIO 27 RATIO (6-26); CALCIUM 8.9 MG/DL (8.4-10.2); CHLORIDE 102 MEQ/L (98-107); CO2 - CARBON DIOXIDE 28 MEQ/L (22-30); CREATININE 0.7 MG/DL (0.7-1.2); GLOMERULAR FILTRATION RATE 80; GLUCOSE 116 MG/DL (65-110); SODIUM 140 MEQ/L (134-144)
--- NOTE | 2017-02-26 08:08 | NUR ---
SHIFT SUMMARY: PT IS A&OX3, CAN BE FORGETFUL AND ANXIOUS AT TIMES. ON DROPLET PRECAUTIONS, IS UP WITH GAIT BELT AND WALKER TO BATHROOM, USES SCDS ON LOWER EXTREMITIES; ON TELEMETRY; PT IS BLIND IN HER RIGHT EYE. CALL LIGHT WITHIN REACH, BED ALARM ON.
[2017-02-26] MEDS: BUDESONIDE INH.SOLN. 0.5mg/2ml NEB AEROSOL SCH ×2 (08:29→20:24)
[2017-02-26] MEDS: ALBUTEROL/IPRATROPIUM INHAL. 2.5mg-0.5mg/3ml Neb. AEROSOL SCH ×4 (08:30→20:24)
[2017-02-26] MEDS: NICOTINE 14 MG PATCH TD SCH (08:58)
[2017-02-26] MEDS: NICOTINE PATCH REMOVAL TD SCH (08:58)
[2017-02-26] MEDS: ASPIRIN *EC* 81mg TABLET PO SCH (08:59)
[2017-02-26] MEDS: FUROSEMIDE 20 MG/2 ML INJECTION IV SCH (08:59)
[2017-02-26] MEDS: AZITHROMYCIN 250 MG TABLET PO SCH (09:00)
[2017-02-26] MEDS: PredniSONE 20 MG TABLET PO SCH (09:00)
[2017-02-26] MEDS: POTASSIUM CHLORIDE 20 MEQ TABLET PO SCH ×3 (09:00→17:28)
[2017-02-26] MEDS: EYE BOTH EYES SCH ×2 (09:01→20:12)
[2017-02-26] MEDS: BRINZOLAMIDE 1% BOTH EYES SCH ×2 (09:01→20:12)
[2017-02-26] MEDS: CEFTRIAXONE 1 G in NORMAL SALINE 100 ML IV SCH (09:13)
--- NOTE | 2017-02-26 10:24 | DI ---
Indication: ITS.REASON: hypoxia, pulm edema versus worsening CAP PROCEDURE: CHEST 1 VIEW: Encounter: Initial Comparison: February 24, 2017 Findings: Interval decrease in small bilateral pleural effusions. Bilateral basilar infiltrates remain. Mild pulmonary vascular congestion is stable. No pneumothorax. Heart size and mediastinal contours are stable. Impression: Interval slight improvement in pleural fluid. .
--- NOTE | 2017-02-26 11:14 | PNPDOC ---
Subjective Date DATE: 02/26/17 TIME: 11:08 Subjective Feeling better today. Still on 02 but weights improved after diuresis and less dyspneic. Appetite poor but trying to eat some. No chest pain, fevers, chills. Has been tachycardic at times. Objective Vital Signs Vital signs Vital Signs Date Time Temp Pulse Resp B/P Pulse Ox O2 Delivery O2 Flow Rate FiO2 02/26/17 08:43 90 02/26/17 08:30 20 95 02/26/17 08:00 93.8 134/84 Nasal Cannula 1.00 Height (Feet): 5 Height (Inches): 0.00 Weight (Kilograms): 42.100 General General Appearance: Alert, Cooperative Eyes (Brief) Eyes: FOUND: EOMI, PERRL, NOT FOUND: scleral icterus Neck (Brief) Neck: FOUND: JVD (improved, below angle of the jaw ) Respiratory (Brief) Comments diminished bases, upper airways clear Cardiovascular (Brief) Cardiac: FOUND: regular rhythm Comments tachycardic, no murmur appreciable Abdomen (Brief) Abdominal: FOUND: soft, NOT FOUND: distended, tender Extremities (Brief) Extremity : Extremity Finding: FOUND: warm, NOT FOUND: cyanosis, edema Integumentary (Brief) Integumentary: FOUND: dry, NOT FOUND: rash Laboratory Laboratory Laboratory Tests 02/25/17 04:21 02/26/17 04:45 Laboratory Tests 02/25/17 04:21 Microbiology Microbiology Cultures NGTD. Radiology PROCEDURE: CHEST 1 VIEW 02/26/17 Encounter: Initial Comparison: February 24, 2017 Findings: Interval decrease in small bilateral pleural effusions. Bilateral basilar infiltrates remain. Mild pulmonary vascular congestion is stable. No pneumothorax. Heart size and mediastinal contours are stable. Impression: Interval slight improvement in pleural fluid. Sepsis Diagnostic Criteria Sepsis Confirmed/Suspected Infection: Yes SIRS Criteria: Temp<=96.8 or >=100.4, WBC >=12,000 or <=4,000, Bands >= 10%, BS >120 in non-diabetic, RR > or = to 20 Severe Sepsis SpO2 <90% or ventilated Assessment & Plan Problems: (1) Acute respiratory failure with hypoxia Status: Acute (2) Severe sepsis Status: Acute (3) Pneumonia Status: Acute Qualifiers: Laterality: left Lung location: lower lobe of lung Assessment & Plan: Bilateral lower lobe infiltrates on CT; left lower lobe on chest x-ray (4) Hypokalemia Status: Acute (5) Leukocytosis Status: Acute (6) Lung cancer Status: Chronic Qualifiers: Lung location: unspecified part of lung (7) Coughing Status: Acute (8) Coronary artery disease Status: Chronic (9) Tobacco dependence Status: Chronic (10) Underweight Status: Chronic Assessment & Plan: Recent weight loss (11) History of aortic aneurysm repair Status: Resolved (12) Dysphagia Status: Chronic (13) Acute hypokalemia Status: Acute Assessment & Plan: Secondary to diuretics Assessment After initially having improvement in oxygenation she worsened with ongoing hypoxia related to volume overload; improved but still with vasc congestion and effusions on CXR. --> Will continue IV lasix but decrease to once daily 20 mg today Repleting K with po potassium, will increase to 40 meq TID today Repeat chest x-ray with small effusions and bilateral infiltrates compared to isolated left lower infiltrate on admission. Ongoing vasc congestion and effusions as above. Continue off IVF. Continue current antibiotics, will finish azithro today, continue rocephin and likely will transition to keflex versus vantin tomorrow. Leukocytosis resolved today. Overnight oximetry will be reviewed; likely will need home 02 at discharge, remains on 2L now. Labs ordered for AM for surveillance. Plan/Intensity of Service Chest x-ray reviewed by myself, laboratory data reviewed. Discussed with nursing and case management. Code Status Do Not Resuscitate Hospital Course Summary Disclaimer The hospital course summary below is not to be considered part of the above Progress Note. Hospital Course Summary Admit patient to inpatient status under the care of Dr. Atkinson for acute respiratory failure with hypoxia, cough, presence of lung cancer. Will obtain the following laboratory studies on admission, CBC, CMP, venous lactate, pro calcitonin, blood cultures 2 Will obtain GI panel given recent diarrhea Chest x-ray two-view and sputum culture as able Oxygen therapy to maintain adequate saturations greater than 92%. DuoNeb QID and Pulmicort BID Given leukocytosis will initiate Rocephin and Azithromycin for pulmonary coverage She may have regular diet and be up in room with assistance SCDs to bilateral lower extremity for DVT prophylaxis We'll recheck CBC and BMP tomorrow morning to follow blood counts, renal function and electrolytes. We'll discuss further plan of care with attending Dr Atkinson At time of discharge medical care will return to her primary care provider Dr Henderson 02/23/17 Working on weaning down to room air today. Respiratory panel was positive for enterovirus/Rhinovirus Prednisone 40 grams daily for pulmonary inflammation Continue with antimicrobial coverage including Rocephin and azithromycin. Scheduled DuoNeb and Pulmicort breathing treatments. Leukocytosis, improved. White count down to 10.1, bandemia decreased to 5%. 02/24 After initially having improvement in oxygenation the patient reports increased dyspnea and has developed recurrent hypoxia. Fluid volume positive over the first 2 days. Repeat chest x-ray with small effusions and bilateral infiltrates compared to isolated left lower infiltrate on admission. Vascular markings not grossly changed but suspect a component of volume overload. Weight up 5 kg from admission. Lasix to be given, IV fluids discontinued. Reassess in a.m. Continue current antibiotics, anticipate discharge in the near future but may require oxygen. Mild persistent leukocytosis but no left shift. Overnight oximetry to be obtained tonight. 02/25/17 After initially having improvement in oxygenation she has worsened with ongoing hypoxia related to volume overload; continue diuresis with lasix 20 mg IV BID today. Repleting K with po potassium, will crush if not tolerating pills. Repeat chest x-ray with small effusions and bilateral infiltrates compared to isolated left lower infiltrate on admission. Vascular markings not grossly changed but suspect a component of volume overload. Weight up 5 kg from admission--> weight really unchanged today, rales on lung exam. Continue off IVF. Continue current antibiotics, may transition to po tomorrow if CXR improved, will repeat in AM. Minor leukocytosis but resolution of left shift and improving. Overnight oximetry will be reviewed; likely will need home 02. Labs ordered for AM in addition to CXR. 02/26/17 After initially having improvement in oxygenation she worsened with ongoing hypoxia related to volume overload; improved but still with vasc congestion and effusions on CXR. --> Will continue IV lasix but decrease to once daily 20 mg today Repleting K with po potassium, will increase to 40 meq TID today Repeat chest x-ray with small effusions and bilateral infiltrates compared to isolated left lower infiltrate on admission. Ongoing vasc congestion and effusions as above. Continue off IVF. Continue current antibiotics, will finish azithro today, continue rocephin and likely will transition to keflex versus vantin tomorrow. Leukocytosis resolved today. Overnight oximetry will be reviewed; likely will need home 02 at discharge, remains on 2L now. Labs ordered for AM for surveillance. GEORGE MIR MD Feb 26, 2017 11:11
--- NOTE | 2017-02-26 18:09 | NUR ---
status Pt A/O x3, V/S stable on 1L. Pt eating at every meal. Ambulating well in room with 1x assist and walker. Pt denies pain, no PRN meds given. No distress with breathing, denies SOA with ambulating. Urine output good for shift, lg BM today. Pt sitting up chair for half the day.
[2017-02-27] VITALS (7 sets, daily range): BP systolic 140–143; BP diastolic 85–98; PULSE 74–86; RESP 16–20; TEMP 96–96.1; O2SAT 88–98
--- NOTE | 2017-02-27 02:31 | NUR ---
BLADDER SCAN: PT HAD NOT GONE TO THE BATHROOM SINCE YESTERDAY MID MORNING; BLADDER SCANNED PT, RETAINING 210 MLS. ASSISTED PT TO BEDSIDE COMMODE TO HELP HER TO RELIEVE HERSELF. OUTPUT WAS 200 MLS. PT STATES SHE FEELS MUCH BETTER. WILL CONTINUE TO MONITOR.
--- NOTE | 2017-02-27 05:22 | NUR ---
SHIFT SUMMARY: PT IS A&OX3, CAN BE FORGETFUL AND ANXIOUS AT TIMES. ON DROPLET PRECAUTIONS; ON 1L OXYGEN NC; PT WAS SITTING IN A CHAIR AT BEGINNING OF MY SHIFT, THEN HELPED BACK TO BED; UP WITH GAIT BELT AND WALKER TO BATHROOM, USES SCDS ON LOWER EXTREMITIES; DENIES SOA OR CHEST PAIN; ON TELEMETRY AND PULSE OX; BLIND IN HER RIGHT EYE. PT CALLED ONCE DURING THE NIGHT FEELING ANXIOUS, SPOKE TO PATIENT AND ADJUSTED HER IN BED, PT STATED SHE FELT BETTER. CALL LIGHT WITHIN REACH, BED ALARM ON.
[2017-02-27 05:30] LABS: HCT - HEMATOCRIT 38.5 % (36-46); HGB - HEMOGLOBIN 12.5 GM/DL (12-16); MEAN CORPUSCULAR HGB 27.1 UUG (26-34); MEAN CORPUSCULAR HGB CONC(MCHC 32.5 GM/DL (31-37); MEAN CORPUSCULAR VOLUME 83.3 UM3 (80-100); MEAN PLATELET VOLUME 9.3 UM3 (9.4-12.4); RED BLOOD COUNT 4.62 M/MM3 (4.00-5.20); WBC - WHITE BLOOD COUNT 10.8 T/MM3 (4.5-11.0)
[2017-02-27 05:31] LABS: ALBUMIN 3.1 G/DL (3.5-5.0); ANION GAP 10 MEQ/L (5-15); BUN/CREATININE RATIO 30 RATIO (6-26); CALCIUM 9.2 MG/DL (8.4-10.2); CHLORIDE 102 MEQ/L (98-107); CO2 - CARBON DIOXIDE 28 MEQ/L (22-30); CREATININE 0.7 MG/DL (0.7-1.2); GLOMERULAR FILTRATION RATE 80; GLUCOSE 114 MG/DL (65-110); PHOSPHORUS 2.9 MG/DL (2.5-4.5); POTASSIUM 4.4 MEQ/L (3.6-5); SODIUM 140 MEQ/L (134-144)
[2017-02-27] MEDS: ALBUTEROL/IPRATROPIUM INHAL. 2.5mg-0.5mg/3ml Neb. AEROSOL SCH ×2 (07:35→10:32)
[2017-02-27] MEDS: BUDESONIDE INH.SOLN. 0.5mg/2ml NEB AEROSOL SCH (07:35)
[2017-02-27] MEDS: ASPIRIN *EC* 81mg TABLET PO SCH (08:50)
[2017-02-27] MEDS: CEFTRIAXONE 1 G in NORMAL SALINE 100 ML IV SCH (08:50)
[2017-02-27] MEDS: PredniSONE 20 MG TABLET PO SCH (08:50)
[2017-02-27] MEDS: POTASSIUM CHLORIDE 20 MEQ TABLET PO SCH ×2 (08:50→12:00)
[2017-02-27] MEDS: AZITHROMYCIN 250 MG TABLET PO SCH (08:51)
[2017-02-27] MEDS: EYE BOTH EYES SCH (08:52)
[2017-02-27] MEDS: BRINZOLAMIDE 1% BOTH EYES SCH (08:52)
[2017-02-27] MEDS: NICOTINE PATCH REMOVAL TD SCH (08:54)
[2017-02-27] MEDS: FUROSEMIDE 20 MG/2 ML INJECTION IV SCH (08:54)
[2017-02-27] MEDS: NICOTINE 14 MG PATCH TD SCH (08:54)
--- NOTE | 2017-02-27 12:45 | NUR ---
JOHANNY CM IN TO VISIT PT AND TALKED WITH PT GRAND DAUGHTER ABOUT DC PLANS. [place] [facility] TO BE USED FOR OXYGEN AT HOME.
[2017-02-27] MEDS ORDERED: POTA10TA16 PO (13:33)
[2017-02-27] MEDS ORDERED: FURO-154 PO (13:33)
[2017-02-27] MEDS ORDERED: METO25TA6 PO (13:33)
--- NOTE | 2017-02-27 13:45 | DSPDOC ---
LUIS CARLOS COBB V PASTEURIZING MACHINE OPERATOR 02/27/17 1344: General Date Date DATE: 02/27/17 TIME: 13:41 Attending Physician Smitha Atkinson MD Admitting Physician Smitha Atkinson MD Consulting Physician None Admitting Diagnosis pneumonia, acute resp failure with hypoxia Discharge Diagnosis COPD Pneumonia Procedures None Laboratory Laboratory Tests Test 02/26/17 04:45 02/27/17 04:41 Turbidity < 20 (0-20) < 20 (0-20) Sodium Level 140MEQ/L (134-144) 140MEQ/L (134-144) Potassium Level 3.0MEQ/L (3.6-5) 4.4MEQ/L (3.6-5) Chloride Level 102MEQ/L (98-107) 102MEQ/L (98-107) Carbon Dioxide Level 28MEQ/L (22-30) 28MEQ/L (22-30) Anion Gap 10MEQ/L (5-15) 10MEQ/L (5-15) Blood Urea Nitrogen 19.0MG/DL (7-17) 21.0MG/DL (7-17) Creatinine 0.7MG/DL (0.7-1.2) 0.7MG/DL (0.7-1.2) Glomerular Filtration Rate Calc 80 80 BUN/Creatinine Ratio 27RATIO (6-26) 30RATIO (6-26) Glucose Level 116MG/DL (65-110) 114MG/DL (65-110) Calculated Osmolality 272MOSM/KG (261-280) 273MOSM/KG (261-280) Calcium Level 8.9MG/DL (8.4-10.2) 9.2MG/DL (8.4-10.2) Phosphorus Level 3.0MG/DL (2.5-4.5) 2.9MG/DL (2.5-4.5) Icterus Index < 2 (0-7) < 2 (0-7) Albumin 2.8G/DL (3.5-5.0) 3.1G/DL (3.5-5.0) Chemistry Specimen Hemolysis 19 (0-25) < 15 (0-25) White Blood Count 10.8T/MM3 (4.5-11.0) Red Blood Count 4.62M/MM3 (4.00-5.20) Hemoglobin 12.5GM/DL (12-16) Hematocrit 38.5% (36-46) Mean Corpuscular Volume 83.3UM3 (80-100) Mean Corpuscular Hemoglobin 27.1UUG (26-34) Mean Corpuscular Hemoglobin Concent 32.5GM/DL (31-37) RDW Standard Deviation 44.7FL (36.9-50.2) Platelet Count 454T/MM3 (130-400) Mean Platelet Volume 9.3UM3 (9.4-12.4) Microbiology PATIENT: Tomy MOORE Tarik Act#:[id number] Loc: [facility] 142-P Specimen: [id number] Collected: 02/22/17 Received: 02/22/[address]: LUIS CARLOS COBB APRN Source: CATH/PORT Procedure Result Verified MICROBIOLOGY BLOOD CULTURE. Preliminary 02/26/17 NO GROWTH AFTER 4 DAYS BLOOD CULTURE. Preliminary (changed) 02/25/17-1329 NO GROWTH AFTER 72 HOURS BLOOD CULTURE. Preliminary (changed) 02/24/17-1329 NO GROWTH AFTER 48 HOURS BLOOD CULTURE. Preliminary (changed) 02/23/17 NO GROWTH AFTER 24 HOURS BLOOD CULTURE. Preliminary (changed) 02/22/17-1330 CULTURE INITIATED - RESULTS PENDING Radiology 02/22/17-chest x-ray- significant left lower lobe pneumonia 02/23/17-CT scan of the head revealing no intracranial abnormality or hemorrhage 02/24/17-chest x-ray- increasing pleural effusions with development of right lower lobe airspace 02/26/17- chest x-ray interval improvement in pleural fluid History of Present Illness Patient is an 86-year-old female who presented to her primary care provider this morning at [facility] and was seen by Lorena Hunt. She was brought by daughter with complaints of diarrhea, weight loss,confusion, and increased coughing. Family reports that there has been a "bug" around the house for the past week. On arrival to the clinic. Patient was found to have hypoxia with room air saturations in the 81%. She is reported to be down from 91 pounds last month 286 pounds today. Given the acute hypoxia, accompanied with increased cough and recent diarrhea. The hospitalist services were contacted and accepted patient for direct admission to [facility] for further evaluation and treatment. It is reported that patient has been under treatment for lung cancer with Dr. Mills. She did have an outpatient CT scan of the chest obtained this morning showing interval extensive tree-in-bed nodularity with bilateral lower lobes which may represent pneumonia. Patient is seen on arrival to [facility]. She is currently requiring 2 liters of oxygen by nasal cannula to maintain adequate saturation. The pressure on arrival 95.5, pulse 72, respiration rate 22, blood pressure 146/72. Patient is alert into 2. She is unsure what year it is currently. She reports feeling more short of breath and having increased cough over the last few days. She is unclear on the timeframe of when her diarrhea starts, however, she thinks it was last week. She denies chest pain, chills, abdominal pain or dysuria. Hospital Course Admit patient to inpatient status under the care of Dr. Atkinson for acute respiratory failure with hypoxia, cough, presence of lung cancer. Will obtain the following laboratory studies on admission, CBC, CMP, venous lactate, pro calcitonin, blood cultures 2 Will obtain GI panel given recent diarrhea Chest x-ray two-view and sputum culture as able Oxygen therapy to maintain adequate saturations greater than 92%. DuoNeb QID and Pulmicort BID Given leukocytosis will initiate Rocephin and Azithromycin for pulmonary coverage She may have regular diet and be up in room with assistance SCDs to bilateral lower extremity for DVT prophylaxis We'll recheck CBC and BMP tomorrow morning to follow blood counts, renal function and electrolytes. We'll discuss further plan of care with attending Dr Atkinson At time of discharge medical care will return to her primary care provider Dr Henderson 02/23/17 Working on weaning down to room air today. Respiratory panel was positive for enterovirus/Rhinovirus Prednisone 40 grams daily for pulmonary inflammation Continue with antimicrobial coverage including Rocephin and azithromycin. Scheduled DuoNeb and Pulmicort breathing treatments. Leukocytosis, improved. White count down to 10.1, bandemia decreased to 5%. 02/24 After initially having improvement in oxygenation the patient reports increased dyspnea and has developed recurrent hypoxia. Fluid volume positive over the first 2 days. Repeat chest x-ray with small effusions and bilateral infiltrates compared to isolated left lower infiltrate on admission. Vascular markings not grossly changed but suspect a component of volume overload. Weight up 5 kg from admission. Lasix to be given, IV fluids discontinued. Reassess in a.m. Continue current antibiotics, anticipate discharge in the near future but may require oxygen. Mild persistent leukocytosis but no left shift. Overnight oximetry to be obtained tonight. 02/25/17 After initially having improvement in oxygenation she has worsened with ongoing hypoxia related to volume overload; continue diuresis with lasix 20 mg IV BID today. Repleting K with po potassium, will crush if not tolerating pills. Repeat chest x-ray with small effusions and bilateral infiltrates compared to isolated left lower infiltrate on admission. Vascular markings not grossly changed but suspect a component of volume overload. Weight up 5 kg from admission--> weight really unchanged today, rales on lung exam. Continue off IVF. Continue current antibiotics, may transition to po tomorrow if CXR improved, will repeat in AM. Minor leukocytosis but resolution of left shift and improving. Overnight oximetry will be reviewed; likely will need home 02. Labs ordered for AM in addition to CXR. 02/26/17 After initially having improvement in oxygenation she worsened with ongoing hypoxia related to volume overload; improved but still with vasc congestion and effusions on CXR. --> Will continue IV lasix but decrease to once daily 20 mg today Repleting K with po potassium, will increase to 40 meq TID today Repeat chest x-ray with small effusions and bilateral infiltrates compared to isolated left lower infiltrate on admission. Ongoing vasc congestion and effusions as above. Continue off IVF. Continue current antibiotics, will finish azithro today, continue rocephin and likely will transition to keflex versus vantin tomorrow. Leukocytosis resolved today. Overnight oximetry will be reviewed; likely will need home 02 at discharge, remains on 2L now. Labs ordered for AM for surveillance. 02/27/17- Discharge Mrs Moore is seen and examined today. Overall she is feeling better and is less short of breath. She is able to get up and ambulate with nursing staff assistance. She does continue to require 2 liters of oxygen by nasal cannula to maintain adequate saturations. She has completed 6 day course of antibiotics. We will continue with Lasix 20 milligrams daily and potassium 20 meq daily. She is also discharged on metoprolol tartrate 25 milligrams twice a day for blood pressure control. She will be discharged home with home oxygen as well as home health. She is instructed to follow with her primary care provider, Dr. Henderson in the next 1 week. This is a general summation of the patients hospital course. Please refer to the medical record if additional detail is needed. Total discharge time greater than 35 minutes Problems: (1) Acute respiratory failure with hypoxia Status: Acute (2) Severe sepsis Status: Acute (3) Pneumonia Status: Acute Assessment & Plan: Bilateral lower lobe infiltrates on CT; left lower lobe on chest x-ray (4) Hypokalemia Status: Resolved (5) Leukocytosis Status: Resolved (6) Lung cancer Status: Chronic (7) Coughing Status: Resolved (8) Coronary artery disease Status: Chronic (9) Tobacco dependence Status: Chronic (10) Underweight Status: Chronic Assessment & Plan: Recent weight loss (11) History of aortic aneurysm repair Status: Resolved (12) Dysphagia Status: Chronic (13) Acute hypokalemia Status: Acute Assessment & Plan: Secondary to diuretics Code Status Do Not Resuscitate Home Meds Active Scripts Furosemide (Lasix) 20 Mg Tablet, 1 TAB PO DAILY for 20 Days, #20 TAB Prov:LUIS CARLOS COBB APRN 02/27/17 Potassium Chloride (Klor-Con M10) 10 Meq Tablet, 20 MEQ PO WB, #30 TAB Take 1 tablet, by mouth, one time a day (with breakfast). Prov:LUIS CARLOS COBB APRN 02/27/17 Metoprolol Tartrate (Metoprolol Tartrate) 25 Mg Tablet, 25 MG PO BIDWM for 30 Days, #60 TAB Prov:LUIS CARLOS COBB APRN 02/27/17 Reported Medications Brinzolamide (Azopt) 100 Drop/10 Ml Drops, 1 DROP BOTH EYES BID 10/28/16 Aspirin (Aspir 81) 81 Mg Tablet.dr, 81 MG PO DAILY 10/28/16 Discontinued Reported Medications Potassium Chloride (Potassium Chloride) 10 Meq Tablet.er, 10 MEQ PO WB 10/28/16 Discontinued Scripts Cephalexin (Keflex) 500 Mg Capsule, 1 CAP PO TID, #21 CAP 0 Refills Prov:FER KATE APRN 10/28/16 Face to Face Encounter I met with patient on the day of dismissal and discussed follow up appointments , medications, and safety plan. Discharge Disposition stable Copies To 1: BASILIO HENDERSON MD, ROBERTA L MD 02/27/17 1329: Hospital Course I have independently evaluated and examined this patient. I reviewed the chart, the patient's history, and the PASTEURIZING MACHINE OPERATOR's documented findings as above. We discussed and formulated the assessment and plan as above with additions as below: Mrs. Moore reports less dyspnea and resolution of cough. She denied lightheadedness ambulating. Oxygen has titrated down to 0.5 L at rest with oxygen saturation 91% and she was 88% on room air at rest. With ambulation however she required 6-8 L oxygen to maintain saturation above 90% while walking but saturation quickly stabilized when she rested. Home oxygen has subsequently been coordinated for discharge. Respirations are diminished but otherwise clear and the patient is alert and fully oriented. There is no peripheral edema. Weight is down 2.4 kg over the weekend with diuresis. Patient's completed 5 days antibiotics for presenting pneumonia, positive for rhinovirus which undoubtedly complicated presentation. Weight remains above baseline and will continue on Lasix 20 mg daily at discharge with 20 mEq potassium daily. Recommend electrolytes be reassessed within 1 week. Metoprolol started yesterday for hypertension, this also will need outpatient follow-up. Stable for discharge at this time with follow-up scheduled with Dr. Rne per patient's daughter. >30 minutes spent on patient care and discharge care coordination today on the date of discharge. -- Problems: (1) Acute respiratory failure with hypoxia Status: Acute (2) Pneumonia Status: Acute Assessment & Plan: Left lower lobe infiltrate on admission (3) Volume overload Status: Acute (4) Rhinovirus infection Status: Acute (5) Hypokalemia Status: Resolved Assessment & Plan: With diuresis (6) Leukocytosis Status: Resolved (7) Lung cancer Status: Chronic (8) Coughing Status: Resolved (9) Coronary artery disease Status: Chronic (10) Tobacco dependence Status: Chronic (11) Underweight Status: Chronic (12) Severe sepsis Status: Acute (13) Dysphagia Status: Chronic (14) History of aortic aneurysm repair Status: Resolved (15) Hypertension Status: Chronic Assessment & Plan: Metoprolol added to regimen 02/26 Home Meds Active Scripts Furosemide (Lasix) 20 Mg Tablet, 1 TAB PO DAILY for 20 Days, #20 TAB Prov:LUIS CARLOS COBB APRN 02/27/17 Potassium Chloride (Klor-Con M10) 10 Meq Tablet, 20 MEQ PO WB, #30 TAB Take 1 tablet, by mouth, one time a day (with breakfast). Prov:LUIS CARLOS COBB APRN 02/27/17 Metoprolol Tartrate (Metoprolol Tartrate) 25 Mg Tablet, 25 MG PO BIDWM for 30 Days, #60 TAB Prov:LUIS CARLOS COBB APRN 02/27/17 Reported Medications Brinzolamide (Azopt) 100 Drop/10 Ml Drops, 1 DROP BOTH EYES BID 10/28/16 Aspirin (Aspir 81) 81 Mg Tablet.dr, 81 MG PO DAILY 10/28/16 Discontinued Reported Medications Potassium Chloride (Potassium Chloride) 10 Meq Tablet.er, 10 MEQ PO WB 10/28/16 Discontinued Scripts Cephalexin (Keflex) 500 Mg Capsule, 1 CAP PO TID, #21 CAP 0 Refills Prov:FER KATE PASTEURIZING MACHINE OPERATOR 10/28/16 Copies To 1: BASILIO HENDERSON MD, JULIE V APRN Feb 27, 2017 13:44 SMITHA ATKINSON MD Feb 27, 2017 16:49
--- NOTE | 2017-02-27 15:12 | NUR ---
CM PT TO DC HOME WITH [facility] [employer] GIVEN CONTACT INFORMATION FOR [facility]. [facility] FAXED DC ORDERS. PT JOSEPH IS AWARE TO CONTACT CM SHOULD NEEDS ARISE.
--- NOTE | 2017-02-27 15:20 | NUR ---
DISCHARGE PT DISCHARGED TO HOME TO LIVE WITH GRANDDAUGHTER WITH [facility]. CALLED IN NEW PRESCRIPTIONS REQUESTED BY GRANDDAUGHTER TO [facility] ON [address] IN [place]. BELONGINGS SENT WITH PT. OXYGEN TANK SENT WITH PT. CALLED [facility] WHEN PT LEFT SO THEY CAN SEND HOME A CONCENTRATOR. PT UP WITH STANDBY ASSIST. IV DISCONTINUED. GRANDDAUGHTER TO DRIVE HOME. DISCHARGE PACKET WITH PT. PT AND GRANDDAUGHTER EDUCATED ON DISCHARGE INSTRUCTIONS. THEY VERBALIZED UNDERSTANDING
[2017-02-27] MEDS ORDERED: POTASSIUM CHLORIDE 20 MEQ TABLET PO SCH (17:00)
== END 2017-02-27 15:20 | disposition home health service (06) | DRG 871 ==
LOC: MED 12:09
PROVIDERS: ADMIT Internal Medicine; ATTEND Internal Medicine
DX: A41.9 Sepsis, unspecified organism (principal); J18.9 Pneumonia, unspecified organism; J96.01 Acute respiratory failure with hypoxia; C34.92 Malignant neoplasm of unspecified part of left bronchus or lung; Z68.1 Body mass index [BMI] 19.9 or less, adult; R65.20 Severe sepsis without septic shock; E87.6 Hypokalemia; Z66 Do not resuscitate; R13.10 Dysphagia, unspecified; I25.10 Atherosclerotic heart disease of native coronary artery without angina pectoris; F17.200 Nicotine dependence, unspecified, uncomplicated; R63.6 Underweight; Z79.82 Long term (current) use of aspirin
CPT/HCPCS: 36415; 80048; 80053; 80069; 81001; 82803; 83605; 83735; 84100; 84145; 85025; 85027; 87040; 87486; 87507; 87581; 87633; 87798; 94640; 94761; 94762; 99406

== ENCOUNTER → 2017-03-07 | Outpatient (CLI) | payer MEDICARE ==
[~2017-03-07] MED LIST changes: -CEPH-583 PO; +FURO-154 PO; +METO25TA6 PO; -POTA10TA14 PO; +POTA10TA16 PO
--- NOTE | 2017-03-07 17:08 | DI ---
INDICATION: ITS.REASON: R06.02 SHORTNESS OF BREATH PROCEDURE: CHEST 2-VIEWS UPRIGHT (PA \T\ LAT) Encounter: Initial COMPARISON: February 26, 2017 FINDINGS: Interval improvement in aeration of the lower lobes with decreasing pulmonary edema. No new consolidation. No pneumothorax. Small bilateral pleural effusions remain. Heart size and mediastinal contours are stable. Pulmonary vascularity is minimally congested but improved. Aortic stent. Impression: Improved pulmonary edema with a mild amount remaining. .
[2017-03-07 17:10] LABS: BLOOD, URINE NEGATIVE (NEGATIVE); COLOR,URINE YELLOW (YELLOW); LEUKOCYTE ESTERASE ,URINE NEGATIVE (NEGATIVE); NITRITE,URINE NEGATIVE (NEGATIVE); UROBILINOGEN,URINE 0.2 EU/DL (NORMAL)
[2017-03-07 17:16] LABS: BASOPHILS % (AUTO) 0.3 % (0-2); EOSINOPHILS # (AUTO) 0.1 T/MM3 (0-0.5); EOSINOPHILS % (AUTO) 0.7 % (0-4); HCT - HEMATOCRIT 40.7 % (36-46); HGB - HEMOGLOBIN 12.9 GM/DL (12-16); IMMATURE GRANULOCYTE # (AUTO) 0.02 T/MM3 (0.00-0.03); IMMATURE GRANULOCYTE % (AUTO) 0.2 % (0.0-0.5); LYMPHOCYTES # (AUTO) 2.6 T/MM3 (1-4.8); LYMPHOCYTES % (AUTO) 26.6 % (23-45); MEAN CORPUSCULAR HGB CONC(MCHC 31.7 GM/DL (31-37); MEAN CORPUSCULAR VOLUME 85.3 UM3 (80-100); MEAN PLATELET VOLUME 8.8 UM3 (9.4-12.4); MONOCYTES # (AUTO) 0.8 T/MM3 (0-0.8); MONOCYTES % (AUTO) 7.8 % (0-9.0); NEUTROPHILS #(AUTO)-ABSOLUTE 6.3 T/MM3 (1.8-7.7); NEUTROPHILS % (AUTO) 64.4 % (33-66); RED BLOOD COUNT 4.77 M/MM3 (4.00-5.20); WBC - WHITE BLOOD COUNT 9.8 T/MM3 (4.5-11.0)
[2017-03-07 17:25] LABS: ALBUMIN 3.7 G/DL (3.5-5.0); ALKALINE PHOSPHATASE 68 U/L (38-126); ALT (SGPT) 31 U/L (9-52); ANION GAP 11 MEQ/L (5-15); AST (SGOT) 20 U/L (14-36); BUN/CREATININE RATIO 17 RATIO (6-26); CALCIUM 9.4 MG/DL (8.4-10.2); CHLORIDE 97 MEQ/L (98-107); CO2 - CARBON DIOXIDE 33 MEQ/L (22-30); CREATININE 0.7 MG/DL (0.7-1.2); GLOMERULAR FILTRATION RATE 80; GLUCOSE 95 MG/DL (65-110); POTASSIUM 3.8 MEQ/L (3.6-5); SODIUM 141 MEQ/L (134-144); TOTAL PROTEIN 7.4 G/DL (6.3-8.2)
[2017-03-07 17:54] LABS: THYROID STIM HORMONE-TSH 0.98 MIU/L (0.47-4.68)
== END ==
LOC: IMA 16:18
PROVIDERS: ATTEND Family Medicine
DX: I10 Essential (primary) hypertension (principal); J81.1 Chronic pulmonary edema
CPT/HCPCS: 36415; 80053; 81003; 84443; 85025